=== PATIENT | female | born 1935 | race Caucasian/White ===

== ENCOUNTER 2016-03-19 06:44 | Inpatient (IN) | payer MEDICARE ==
[2016-03-19] MEDS ORDERED: MORPHINE SULFATE 10 MG/ML INJ IV ONE (07:01)
[2016-03-19] MEDS ORDERED: NORMAL SALINE 1000 ML 1,000 ML IV ONE ×2 (07:02→09:58)
[2016-03-19] MEDS ORDERED: ONDANSETRON HCL INJ/PF 4 MG/2 ML SDV IV ONE (07:02)
[2016-03-19 07:04] LABS: ABSOLUTE BASOPHILS # (AUTO) 0.1 10^3/uL (0.0-0.2); ABSOLUTE EOSINOPHILS # (AUTO) 0.1 10^3/uL (0.0-0.6); ABSOLUTE LYMPHOCYTES (AUTO) 1.3 10^3/uL (0.5-4.7); ABSOLUTE MONOCYTES (AUTO) 0.6 10^3/uL (0.1-1.4); ABSOLUTE NEUT (AUTO) 9.1 10^3/uL (1.7-8.2); BASOPHILS % (AUTO) 0.5 % (0-2); EOSINOPHILS % (AUTO) 1.1 % (0-6); HEMOGLOBIN 13.8 g/dL (12.0-15.5); HGB HCT DIFFERENCE -0.6; LYMPHOCYTES % (AUTO) 11.5 % (13-45); MEAN CORPUSCULAR HEMOGLOBIN 30.5 pg (27.0-33.4); MEAN CORPUSCULAR VOLUME 93 fl (80-97); MONOCYTES % (AUTO) 5.8 % (3-13); RED BLOOD COUNT 4.53 10^6/uL (3.72-5.28); RED CELL DISTRIBUTION WIDTH 14.6 % (11.5-14.0); SEGMENTED NEUTROPHILS % (AUTO) 81.1 % (42-78); WHITE BLOOD COUNT 11.2 10^3/uL (4.0-10.5)
[2016-03-19 07:17] LABS: ALANINE AMINOTRANSFERASE 26 U/L (9-52); ALBUMIN 4.3 g/dL (3.5-5.0); ALKALINE PHOSPHATASE 85 U/L (38-126); ANION GAP 19 (5-19); ASPARTATE AMINO TRANSFERASE 29 U/L (14-36); BILIRUBIN,TOTAL 0.9 mg/dL (0.2-1.3); BLOOD UREA NITROGEN 20 mg/dL (7-20); CALCIUM 8.2 mg/dL (8.4-10.2); CARBON DIOXIDE 16 mmol/L (22-30); CHLORIDE 103 mmol/L (98-107); CREATININE RESULT 1.96 mg/dL (0.52-1.25); GLUCOSE 87 mg/dL (75-110); LIPASE 104.4 U/L (23-300); POTASSIUM 4.2 mmol/L (3.6-5.0); SODIUM 138.2 mmol/L (137-145); TOTAL PROTEIN 6.9 g/dL (6.3-8.2)
--- NOTE | 2016-03-19 08:00 | ER Document Report ---
ED General - General Chief Complaint: Abdominal Pain Stated Complaint: LOWER ABDOMINAL PAIN Mode of Arrival: Ambulatory Information source: Patient Notes: 80-year-old female with hx of colostomy presents with complaints of abd pain with nausea and decreased colostomy output. pt denies any fevers or chills, ntoes pain started yesterday, has noted liquid only in ostomy. TRAVEL OUTSIDE OF THE [place] IN LAST 30 DAYS: No - HPI Onset: Just prior to arrival Onset/Duration: Sudden Quality of pain: Sharp Severity: Mild Pain Level: 2 Associated symptoms: Nausea Exacerbated by: Denies Relieved by: Denies Similar symptoms previously: No Recently seen / treated by doctor: No - Related Data Allergies/Adverse Reactions: Influenza Virus Vaccines [Influenza Virus Vaccine] Allergy (Severe, Verified 05/23 11:10) SICK amoxicillin [Amoxicillin] Allergy (Intermediate, Verified 05/05/15 06:41) swelling tetracycline [Tetracycline] Allergy (Intermediate, Verified 05/05/15 06:41) swelling estelle Allergy (Severe, Uncoded 05/05/15 06:41) swelling Past Medical History - Social History Smoking Status: Never Smoker Cigarette use (# per day): No Chew tobacco use (# tins/day): No Smoking Education Provided: No Family History: Reviewed & Not Pertinent, Other - Past Medical History Cardiac Medical History: Reports: Hx Hypertension Denies: Hx Coronary Artery Disease, Hx Heart Attack Pulmonary Medical History: Reports: Hx COPD Denies: Hx Asthma, Hx Bronchitis, Hx Pneumonia, Hx Tuberculosis Neurological Medical History: Denies: Hx Cerebrovascular Accident, Hx Seizures Endocrine Medical History: Reports: Hx Hypothyroidism. Denies: Hx Graves' Disease, Hx Hyperthyroidism Renal/ Medical History: Reports: Hx Kidney Stones, Hx Ovarian Cysts - 1980. Denies: Hx End Stage Renal Disease, Hx Peritoneal Dialysis, Hx Pelvic Inflammatory Disease Malignancy Medical History: Reports: Hx Cervical Cancer - 1980 stage got hysterectomy. Denies: Hx Breast Cancer, Hx Leukemia, Hx Ovarian Cancer GI Medical History: Reports: Hx Gastroesophageal Reflux Disease, Hx Ulcer. Denies: Hx Crohn's Disease, Hx Hiatal Hernia, Hx Irritable Bowel, Hx Liver Failure Musculoskeltal Medical History: Reports Hx Arthritis, Denies Hx Fibromyalgia, Denies Hx Muscular Dystrophy Psychiatric Medical History: Reports: Hx Depression Denies: Hx Bipolar Disorder, Hx Post Traumatic Stress Disorder, Hx Schizophrenia Traumatic Medical History: Reports: Hx Fractures - ankl 1970 Infectious Medical History: Denies: Hx HIV Past Surgical History: Reports: Hx Appendectomy - 16yrs old, Hx Bowel Surgery - 1974, colostomy, Hx Breast Surgery, Hx Colostomy, Hx Gastric Bypass Surgery - 1974, Hx Genitourinary Surgery - bladder tumors, Hx Hysterectomy. Denies: Hx Section, Hx Cholecystectomy, Hx Coronary Artery Bypass Graft, Hx Herniorrhaphy, Hx Mastectomy, Hx Pacemaker, Hx Tonsillectomy, Hx Tubal Ligation - Immunizations Hx Diphtheria, Pertussis, Tetanus Vaccination: Yes Hx Pneumococcal Vaccination: 02/07/09 Review of Systems - Review of Systems Notes: REVIEW OF SYSTEMS: CONSTITUTIONAL : Denies fever, chills, or sweats. Denies recent illness. EENT: Denies eye, ear, throat, or mouth pain or symptoms. Denies nasal or sinus congestion or discharge. Denies throat, tongue, or mouth swelling or difficulty swallowing. CARDIOVASCULAR: Denies chest pain. Denies palpitations or racing or irregular heart beat. Denies ankle edema. RESPIRATORY: Denies cough, cold, or chest congestion. Denies shortness of breath, difficulty breathing, or wheezing. GASTROINTESTINAL: admits to abd pain, nausea GENITOURINARY: Denies difficulty urinating, painful urination, burning, frequency, blood in urine, or discharge. MUSCULOSKELETAL: Denies back or neck pain or stiffness. Denies joint pain or swelling. SKIN: Denies rash, lesions or sores. HEMATOLOGIC : Denies easy bruising or bleeding. LYMPHATIC: Denies swollen, enlarged glands. NEUROLOGICAL: Denies confusion or altered mental status. Denies passing out or loss of consciousness. Denies dizziness or lightheadedness. Denies headache. Denies weakness or paralysis or loss of use of either side. Denies problems with gait or speech. Denies sensory loss, numbness, or tingling. Denies seizures. PSYCHIATRIC: Denies anxiety or stress. Denies depression, suicidal ideation, or homicidal ideation. ALL OTHER SYSTEMS REVIEWED AND NEGATIVE. Dictation was performed using [employer] voice recognition software Physical Exam - Vital signs Vitals: Temp Pulse Resp BP Pulse Ox 97.4 F 92 24 H 147/99 H 93 03/19/16 06:47 03/19/16 06:47 03/19/16 06:47 03/19/16 06:47 03/19/16 06:47 Course - Re-evaluation Re-evalutation: 03/19/16 08:03 Patient will be sent for a CT with oral and IV contrast, to rule out obstruction 03/19/16 09:57 CT results discussed with radiologist, we believe the patient has this obstruction, I spoke with the surgical rest will admit to his service but requests NG tube continue fluids - Vital Signs Vital signs: Temp Pulse Resp BP Pulse Ox 97.6 F 92 19 189/80 H 94 03/19/16 08:58 03/19/16 06:47 03/19/16 08:54 03/19/16 08:54 03/19/16 08:54 - Laboratory Result Diagrams: 03/19/16 06:53 03/19/16 06:53 Laboratory results interpreted by me: 03/19/16 03/19/16 06:53 06:53 WBC 11.2 H RDW 14.6 H Seg Neutrophils % 81.1 H Lymphocytes % 11.5 L Absolute Neutrophils 9.1 H Carbon Dioxide 16 L Creatinine 1.96 H Est GFR ( Amer) 30 L Est GFR (Non-Af Amer) 25 L Calcium 8.2 L - Diagnostic Test Radiology reviewed: Image reviewed, Reports reviewed Discharge - Discharge Clinical Impression: Small bowel obstruction Abdominal pain Qualifiers: Abdominal location: generalized Qualified Code(s): R10.84 - Generalized abdominal pain Condition: Stable Disposition: ADMITTED INPATIENT Admitting Provider: Surgicalist Unit Admitted: Surgical Floor
[2016-03-19] MEDS ORDERED: DILTIAZEM HCL INJ 25 MG/5 ML VIAL IV ONE ×2 (09:00→09:02)
[2016-03-19 10:49] LABS: APPEARANCE,URINE CLEAR; BILIRUBIN,URINE NEGATIVE (NEGATIVE); GLUCOSE, URINE NEGATIVE (NEGATIVE); KETONES,URINE 20 mg/dL (NEGATIVE); LEUKOCYTE ESTERASE,URINE NEGATIVE (NEGATIVE); NITRITE,URINE NEGATIVE (NEGATIVE); PROTEIN,URINE 30 mg/dL (NEGATIVE); URINE SPECIFIC GRAVITY 1.015; UROBILINOGEN,URINE NEGATIVE mg/dL (<2.0)
[2016-03-19] MEDS ORDERED: ENOXAPARIN SODIUM INJ 40 MG/0.4 ML DISP.SYRIN SUBCUT ONE (12:45)
--- NOTE | 2016-03-19 14:03 | HISTORY AND PHYSICAL E ---
History and Physical NAME: SHAHIDA LAMA : 1935 AGE: 80Y ADMITTED: 03/19/2016 ROOM: 529 HISTORY OF PRESENT ILLNESS: The patient presented to the emergency room with a history of abdominal pain from yesterday. She had a colostomy from colectomy done in 2006. She was told that she had an abscess intra-abdominally, possibly diverticular disease or some other pathology. She had exploratory laparotomy and then the colostomy. She has been doing fairly well until recently for the last 2 days having some abdominal pain from yesterday. She came in with abdominal pain and nausea. She did not vomit at home but after coming to the emergency room she threw up once here. Most of the pain is in the lower abdomen with some distention. No history of fever at home. She denies any urinary tract infection or urinary tract symptoms. No blood in the stool in the past. She never had a colonoscopy after that 2006 colostomy. PAST MEDICAL HISTORY: History of hypertension and rheumatoid arthritis. SURGICAL HISTORY: She had *------* laparotomy and colostomy on the left side. Uncertain whether she had a colectomy at the same time. REVIEW OF SYSTEMS: As above per examination. PHYSICAL EXAMINATION: GENERAL: She was mildly dehydrated, awake, alert, oriented. No icterus. HEAD AND NECK: No lymphadenopathy. No thyromegaly. No masses. RESPIRATORY: Both lungs are clear to auscultation. CARDIOVASCULAR: Both heart sounds are regular. No murmurs, no gallops. No added sounds. ABDOMEN: Lower abdomen mildly distended, soft. No rebound. Mildly tender. No masses palpable. Appreciable small hernia *------* colostomy, but there is no incarcerated hernia in the mid abdomen. EXTREMITIES: Warm and perfused. DIAGNOSTICS: CT scan reveals dilated small bowel loops with some inflammatory changes around that area. No free fluid and no free air. White count was 11. IMPRESSION: Rule out small bowel obstruction, most likely due to adhesions. PLAN: Initial conservative management because she appears to have a stable, benign, soft abdomen. We will start with conservative management upwards, first with NG tube decompression, IV fluids, DVT prophylaxis, and then close monitoring. Based on her progress, if it resolves completely with medical therapy that is fine. If not, we will plan for surgical intervention. DICTATING PHYSICIAN: TORIE FERNANDO M.D. [id number] PHY#: [id number] ID: [id number] JOB#: [id number] ACCT: [id number] cc: >
[2016-03-19] MEDS: HYDROMORPHONE HCL INJ/PF 2 MG/ML AMPULE IV PRN ×3 (14:04→22:11)
[2016-03-19] MEDS: POTASSI CL 20 MEQ/D5-1/2NS 1L 1000 ML IV PRN ×2 (14:04→23:19)
[2016-03-19] MEDS: ONDANSETRON HCL INJ/PF 4 MG/2 ML SDV IV PRN (14:04)
[2016-03-20] MEDS: HYDROMORPHONE HCL INJ/PF 2 MG/ML AMPULE IV PRN ×4 (02:05→20:42)
[2016-03-20 04:23] LABS: HEMATOCRIT 40.3 % (36.0-47.0); HEMOGLOBIN 13.3 g/dL (12.0-15.5); HGB HCT DIFFERENCE -0.4; MEAN CORPUSCULAR HEMOGLOBIN 31.1 pg (27.0-33.4); MEAN CORPUSCULAR VOLUME 94 fl (80-97); RED BLOOD COUNT 4.27 10^6/uL (3.72-5.28); RED CELL DISTRIBUTION WIDTH 14.8 % (11.5-14.0); WHITE BLOOD COUNT 8.8 10^3/uL (4.0-10.5)
[2016-03-20 04:41] LABS: ANION GAP 11 (5-19); BLOOD UREA NITROGEN 18 mg/dL (7-20); CARBON DIOXIDE 19 mmol/L (22-30); CHLORIDE 107 mmol/L (98-107); CREATININE RESULT 1.68 mg/dL (0.52-1.25); GLUCOSE 149 mg/dL (75-110); POTASSIUM 4.9 mmol/L (3.6-5.0); SODIUM 137.2 mmol/L (137-145)
[2016-03-20 04:53] LABS: CALCIUM 7.1 mg/dL (8.4-10.2)
[2016-03-20] MEDS: ONDANSETRON HCL INJ/PF 4 MG/2 ML SDV IV PRN (08:07)
[2016-03-20] MEDS: POTASSI CL 20 MEQ/D5-1/2NS 1L 1000 ML IV PRN ×2 (09:52→19:08)
[2016-03-20] MEDS ORDERED: ENOXAPARIN SODIUM INJ 40 MG/0.4 ML DISP.SYRIN SUBCUT SCH (10:00)
[2016-03-20] MEDS: ENOXAPARIN SODIUM INJ 30 MG/0.3 ML DISP.SYRIN SUBCUT SCH ×2 (12:53→13:57)
[2016-03-20] MEDS ORDERED: HYDROMORPHONE HCL INJ/PF 2 MG/ML AMPULE IV ONE (13:15)
[2016-03-20] MEDS ORDERED: SUCCINYLCHOLINE CHLORIDE INJ 200 MG/10 ML VIAL ONE (13:47)
[2016-03-20] MEDS ORDERED: ROCURONIUM BROMIDE INJ 50 MG/5 ML VIAL IV ONE (13:47)
[2016-03-20] MEDS ORDERED: ERTAPENEM SODIUM 1 GM in NORMAL SALINE 50 ML IV ONE (14:00)
[2016-03-20] MEDS ORDERED: FENTANYL CITRATE INJ/PF 250 MCG/5 ML AMPULE ONE (15:09)
[2016-03-20] MEDS ORDERED: PROPOFOL INJ 200 MG/20 ML VIAL IV ONE (15:09)
[2016-03-20] MEDS ORDERED: MIDAZOLAM 2 MG/2 ML INJ ONE (15:09)
[2016-03-20] MEDS ORDERED: ONDANSETRON HCL INJ/PF 4 MG/2 ML SDV IV PRN ×2 (16:40→19:01)
[2016-03-20] MEDS ORDERED: DIPHENHYDRAMINE HCL 50 MG/ML VIAL IV PRN (16:40)
[2016-03-20] MEDS ORDERED: FENTANYL CITRATE INJ/PF 100 MCG/2 ML AMPUL IV PRN ×3 (16:40)
[2016-03-20] MEDS ORDERED: PROMETHAZINE HCL INJ 25 MG/1 ML VIAL IV PRN (16:40)
[2016-03-20] MEDS ORDERED: HYDROMORPHONE HCL INJ/PF 2 MG/ML AMPULE ONE (17:26)
[2016-03-20] MEDS ORDERED: PHARMACY COMMUNICATION ORDER MC NR (18:45)
[2016-03-20] MEDS ORDERED: PROPOFOL 100 ML IV ONE (18:47)
[2016-03-20] MEDS ORDERED: POTASSI CL 20 MEQ/D5NS 1L 1000 ML IV PRN (18:59)
[2016-03-20] MEDS ORDERED: ERTAPENEM SODIUM INJ 1 GM VIAL IV PRN (19:00)
[2016-03-20] MEDS ORDERED: DEXTROSE 5%-WATER 250 ML with NOREPINEPHRINE BITARTRATE 4 MG IV PRN ×2 (19:00)
--- NOTE | 2016-03-20 19:34 | PDOC CONSULTATION ---
Consultation Consult Date: 03/20/16 Attending physician:: SURGICAL SURGICALIST MD Consult reason:: Medical management History of Present Illness Admission Date/PCP: 03/19/16 10:10 ELISA KAMARA, Patient complains of: Abdominal pain History of Present Illness: SHAHIDA LAMA is a 80 year old female, who presents to the emergency room for abdominal pain. She had prior intra-abdominal abscess possibly from a diverticular disease, underwent exploratory laparotomy and colostomy placement. In the emergency room she was found to have bowel obstruction presumed to be secondary to adhesions on radiographic films. Surgery was consulted and the patient was brought to the operating room and underwent exploratory laparotomy found with bowel ischemia requiring bowel resection and lysis of adhesions. Patient was maintained on the ventilator postoperatively and was transferred to the intensive care unit and consultation was made to the medical service for medical management. No other information available at this time. Information obtained from prior records, emergency room records, and surgical records. Past Medical History Past Medical History: Medication reconciliation pending verification from the patient's pharmacist Cardiac Medical History: Reports: Hypertension Denies: Coronary Artery Disease, Myocardial Infarction Pulmonary Medical History: Reports: Chronic Obstructive Pulmonary Disease (COPD) Denies: Asthma, Bronchitis, Pneumonia, Tuberculosis EENT Medical History: Reports: Cataracts Neurological Medical History: Denies: Seizures Endocrine Medical History: Reports: Hypothyroidism Denies: Hyperthyroidism Renal/ Medical History: Denies: End Stage Renal Disease Malignancy Medical History: Reports: Cervical Cancer - 1981 stage got hysterectomy Denies: Breast Cancer, Leukemia, Ovarian Cancer GI Medical History: Reports: Gastroesophageal Reflux Disease Denies: Crohn's Disease, Hiatal Hernia Musculoskeltal Medical History: Reports: Arthritis Denies: Fibromyalgia Psychiatric Medical History: Reports: Depression Denies: Bipolar Disorder, Post Traumatic Stress Disorder Hematology: Reports: Anemia - 2004 Denies: Hemophilia, Sickle Cell Disease Infectious Medical History: Denies: HIV Past Surgical History Past Surgical History: Reports: Appendectomy - 16yrs old, Colostomy, Gastric Bypass Surgery - 1974, Hysterectomy, Other - Breast augmentation, exploratory laparotomy Denies: Amputation, Section, Cholecystectomy, Coronary Artery Bypass Graft, Herniorrhaphy, Mastectomy, Pacemaker, Tonsillectomy, Tubal Ligation Social History Information Source: [facility] Records Smoking Status: Never Smoker Frequency of Alcohol Use: None Hx Recreational Drug Use: No Drugs: None Hx Prescription Drug Abuse: No - Advance Directive Resuscitation Status: Do Not Resuscitate Family History Family History: Reviewed & Not Pertinent, Other Family History: Unobtainable Parental Family History Reviewed: No Children Family History Reviewed: No Sibling(s) Family History Reviewed.: No Medication/Allergy Home Medications: Albuterol Sulfate [Ventolin HFA MDI 18 GM] 2 puff IH TIDP PRN 03/19/16 Calcium Carbonate/Vitamin D3 [Calcium 600-Vit D3 800 Tablet] 1 tab PO DAILY 11/23 Cholecalciferol (Vitamin D3) [Vitamin D3] 1,000 unit PO DAILY 03/19/16 Citalopram Hydrobromide [Celexa 20 mg Tablet] 20 mg PO DAILY 03/19/16 Cyclobenzaprine HCl [Flexeril 10 mg Tablet] 10 mg PO Q8 03/19/16 Diltiazem HCl [Diltiazem 24Hr ER] 180 mg PO DAILY 03/19/16 Diphenhydramine HCl [Benadryl] 25 mg PO QHS 03/19/16 Folic Acid [Folvite 1 mg Tablet] 1 mg PO DAILY 03/19/16 Levothyroxine Sodium [Synthroid 0.05 mg Tablet] 0.05 mg PO DAILY 03/19/16 Lorazepam [Ativan 1 mg Tablet] 1 mg PO TIDP PRN 03/19/16 Magnesium Oxide [Mag-Ox 400 mg Tablet] 400 mg PO DAILY 03/19/16 Omeprazole 20 mg PO QAM 03/19/16 Oxycodone HCl/Acetaminophen [Percocet 5-325 mg Tablet] 1 tab PO Q6 03/19/16 Tiotropium [place] [Spiriva Handihaler 18 mcg/dose (30 Dose)] 1 cap IH DAILY 11/23 Allergies/Adverse Reactions: Influenza Virus Vaccines [Influenza Virus Vaccine] Allergy (Severe, Verified 05/23 11:10) SICK amoxicillin [Amoxicillin] Allergy (Intermediate, Verified 05/05/15 06:41) swelling tetracycline [Tetracycline] Allergy (Intermediate, Verified 05/05/15 06:41) swelling estelle Allergy (Severe, Uncoded 05/05/15 06:41) swelling Review of Systems ROS unobtainable: Due to endotracheal tube Physical Exam Vital Signs: Temp Pulse Resp BP Pulse Ox 97.6 F 117 H 16 137/69 H 100 03/20/16 16:00 03/20/16 16:00 03/20/16 16:00 03/20/16 16:00 03/20/16 18:34 Intake & Output 03/19/16 03/20/16 03/21/16 06:59 06:59 06:59 Intake Total 2160 2480 Output Total 2380 Balance 2160 100 Weight 41.1 kg General appearance: PRESENT: no acute distress, thin, other - Intubated on mechanical ventilator Head exam: PRESENT: atraumatic, normocephalic Eye exam: PRESENT: conjunctiva pale, EOMI - Seems to be intact. ABSENT: periorbital swelling, scleral icterus Ear exam: PRESENT: normal external ear exam. ABSENT: drainage Mouth exam: PRESENT: moist, neck supple, tongue midline Neck exam: ABSENT: carotid bruit, JVD, lymphadenopathy, thyromegaly Respiratory exam: PRESENT: rhonchi - few, unlabored, other - Increased AP diameter of the chest. ABSENT: rales, wheezes Cardiovascular exam: PRESENT: RRR. ABSENT: diastolic murmur, gallop, rubs, systolic murmur Pulses: PRESENT: normal dorsalis pedis pul Vascular exam: PRESENT: normal capillary refill GI/Abdominal exam: PRESENT: hypoactive bowel sounds, soft. ABSENT: distended, mass, organolmegaly Rectal exam: PRESENT: deferred Extremities exam: PRESENT: full ROM. ABSENT: calf tenderness, clubbing, pedal edema Neurological exam: PRESENT: altered - Intubated, sedated Psychiatric exam: ABSENT: agitated Focused psych exam: ABSENT: restlessness Skin exam: PRESENT: dry, intact, warm. ABSENT: cyanosis Results Laboratory Results: 03/20/16 03:32 03/20/16 03:32 03/20/16 03/20/16 03/20/16 03:32 03:32 13:14 WBC 8.8 RBC 4.27 Hgb 13.3 Hct 40.3 MCV 94 MCH 31.1 MCHC 33.0 RDW 14.8 H Plt Count 243 Sodium 137.2 Potassium 4.9 Chloride 107 Carbon Dioxide 19 L Anion Gap 11 BUN 18 Creatinine 1.68 H Est GFR ( Amer) 36 L Est GFR (Non-Af Amer) 29 L Glucose 149 H Calcium 7.1 L Blood Type A POSITIVE Antibody Screen NEGATIVE Impressions: KUB X-Ray 03/19/16 00:00 IMPRESSION: Nasogastric tube tip in the stomach fundus, side port in the distal esophagus Abdomen/Pelvis CT 03/19/16 08:12 IMPRESSION: Findings worrisome for early or partial small bowel obstruction Abdomen X-Ray 03/20/16 00:00 IMPRESSION: Nonspecific intestinal bowel gas pattern without evidence for obstruction. Left renal calculi. Other findings as noted above Assessment & Plan - Diagnosis (1) Small bowel obstruction Is this a current diagnosis for this admission?: Yes (2) Chronic kidney disease (CKD) Qualifiers: Chronic kidney disease stage: stage 3 (moderate) Qualified Code(s): N18.3 - Chronic kidney disease, stage 3 (moderate) Is this a current diagnosis for this admission?: Yes (3) GERD (gastroesophageal reflux disease) Qualifiers: Esophagitis presence: esophagitis presence not specified Qualified Code(s): K21.9 - Gastro-esophageal reflux disease without esophagitis Is this a current diagnosis for this admission?: Yes (4) Rheumatoid arthritis Qualifiers: Rheumatoid arthritis location: unspecified site Rheumatoid factor presence: unspecified presence Qualified Code(s): M06.9 - Rheumatoid arthritis, unspecified Is this a current diagnosis for this admission?: Yes (5) Hypothyroidism (acquired) Is this a current diagnosis for this admission?: Yes (6) Anemia of chronic disease Is this a current diagnosis for this admission?: Yes (7) Hypertension Qualifiers: Hypertension type: essential hypertension Qualified Code(s): I10 - Essential (primary) hypertension Is this a current diagnosis for this admission?: Yes (8) COPD (chronic obstructive pulmonary disease) Qualifiers: COPD type: unspecified COPD Qualified Code(s): J44.9 - Chronic obstructive pulmonary disease, unspecified Is this a current diagnosis for this admission?: Yes - Time Time Spent: 50 to 70 Minutes - Plan Summary Plan Summary: Continue ventilatory support. We will add diprivan for light sedation, and as needed levophed if hypotension recurs. We will recheck hematocrit and electrolytes in the morning. Follow-up chest x-ray will be done. We will try to wean the patient denies morning. I will resume the patient's thyroid supplement intravenously at half the dose. Agree with IV antibiotics and IV fluids. We will place restraints to prevent pulling of the critical chills and lines. I will likewise continue the patient's bronchodilators. Thank you so much for this consultation. We will follow the patient with you.
--- NOTE | 2016-03-20 19:36 | EKG REPORT ---
SEVERITY:- BORDERLINE ECG - SINUS TACHYCARDIA BORDERLINE T ABNORMALITIES, ANT-LAT LEADS : Confirmed by: Jamie Dykes MD 20-Mar-2016 19:35:20
[2016-03-20] MEDS: LEVALBUTEROL HCL NEB 1.25 MG/3 ML AMPUL NEB SCH (20:32)
[2016-03-20 20:42] LABS: ARTERIAL BLOOD BASE EXCESS -9.8 mmol/L; ARTERIAL BLOOD O2 SATURATION 90.3 % (94-98)
--- NOTE | 2016-03-20 21:08 | OPERATIVE REPORT E ---
Operative Report NAME: SHAHIDA LAMA : 1935 AGE: 80Y DATE OF SURGERY: 03/20/2016 ROOM: 606 PREOPERATIVE DIAGNOSES: 1. Small bowel obstruction. 2. Severe malnutrition. 3. Rheumatoid arthritis. 4. Need of central venous access. POSTOPERATIVE DIAGNOSES: 1. Small bowel obstruction. 2. Severe malnutrition. 3. Rheumatoid arthritis. 4. Need of central venous access. OPERATION: In the ICU at the bedside, insertion of central venous catheter through the right internal jugular vein. SURGEON: TORIE FERNANDO M.D. PROCEDURE DESCRIPTION: After getting informed consent from the patient's family, the patient was placed in the Trendelenburg position. The neck and anterior chest wall cleaned to a sterile field. After that, the right internal jugular vein was accessed by using the Seldinger technique through the needle and a guidewire was passed into the superior vena cava. After that, the tract was dilated and then over the guidewire, a triple lumen catheter was inserted into the superior vena cava. Excellent venous flow through all 3 ports, and then all 3 ports were flushed with heparinized solution and then secured in place by using absorbable sutures and then dressing was applied. Ports were flushed with heparinized solution. Patient tolerated the procedure very well. DICTATING PHYSICIAN: TORIE FERNANDO M.D. [id number] PHY#: [id number] ID: [id number] JOB#: [id number] ACCT: [id number] cc:TORIE FERNANDO M.D. >
[2016-03-20] MEDS ORDERED: ERTAPENEM SODIUM 1 GM in NORMAL SALINE 50 ML IV SCH (22:00)
[2016-03-20] MEDS ORDERED: ERTAPENEM SODIUM INJ 1 GM VIAL ONE (23:59)
[2016-03-21] MEDS: PROPOFOL 100 ML IV PRN ×4 (00:41→21:04)
[2016-03-21] MEDS: HYDROMORPHONE HCL INJ/PF 2 MG/ML AMPULE IV PRN ×3 (02:09→19:29)
[2016-03-21] MEDS: LEVALBUTEROL HCL NEB 1.25 MG/3 ML AMPUL NEB SCH ×4 (02:27→20:15)
[2016-03-21] MEDS: POTASSI CL 20 MEQ/D5-1/2NS 1L 1000 ML IV PRN (04:14)
[2016-03-21] MEDS ORDERED: NORMAL SALINE 1000 ML 250 ML IV ONE (04:39)
[2016-03-21 05:54] LABS: ARTERIAL BLOOD BASE EXCESS -12.8 mmol/L; ARTERIAL BLOOD O2 SATURATION 97.2 % (94-98)
[2016-03-21 05:58] LABS: HEMATOCRIT 31.9 % (36.0-47.0); HGB HCT DIFFERENCE -0.4; MEAN CORPUSCULAR HEMOGLOBIN 31.5 pg (27.0-33.4); MEAN CORPUSCULAR HGB CONC 32.9 g/dL (32.0-36.0); MEAN CORPUSCULAR VOLUME 96 fl (80-97); RED BLOOD COUNT 3.33 10^6/uL (3.72-5.28); RED CELL DISTRIBUTION WIDTH 14.5 % (11.5-14.0); WHITE BLOOD COUNT 7.2 10^3/uL (4.0-10.5)
[2016-03-21 06:13] LABS: ANION GAP 9 (5-19); BLOOD UREA NITROGEN 20 mg/dL (7-20); CARBON DIOXIDE 16 mmol/L (22-30); CHLORIDE 109 mmol/L (98-107); CREATININE RESULT 1.66 mg/dL (0.52-1.25); GLUCOSE 129 mg/dL (75-110); PHOSPHORUS 3.1 mg/dL (2.5-4.5); POTASSIUM 5.3 mmol/L (3.6-5.0); SODIUM 133.9 mmol/L (137-145)
[2016-03-21 06:17] LABS: HEMOGLOBIN 10.5 g/dL (12.0-15.5)
[2016-03-21 06:36] LABS: CALCIUM 5.8 mg/dL (8.4-10.2); MAGNESIUM 0.4 mg/dL (1.6-2.3)
[2016-03-21 07:31] LABS: ALBUMIN 1.8 g/dL (3.5-5.0); ANION GAP 7 (5-19); BLOOD UREA NITROGEN 20 mg/dL (7-20); CARBON DIOXIDE 16 mmol/L (22-30); CHLORIDE 110 mmol/L (98-107); CREATININE RESULT 1.64 mg/dL (0.52-1.25); GLUCOSE 122 mg/dL (75-110); POTASSIUM 5.2 mmol/L (3.6-5.0); SODIUM 133.1 mmol/L (137-145)
[2016-03-21 07:39] LABS: MAGNESIUM 0.4 mg/dL (1.6-2.3)
[2016-03-21] MEDS ORDERED: MAGNESIUM SULFATE/D5W 2 GM/200 ML RTUPB IV ONE (07:58)
[2016-03-21] MEDS ORDERED: MAGNESIUM SULFATE/D5W 100 ML IV SCH (08:00)
[2016-03-21] MEDS ORDERED: ENOXAPARIN SODIUM INJ 40 MG/0.4 ML DISP.SYRIN SUBCUT SCH (08:00)
--- NOTE | 2016-03-21 08:08 | PDOC PROGRESS REPORT ---
Subjective Progress Note for:: 03/21/16 Subjective:: Patient on the ventilator. No reported respiratory distress. No temperature spikes. Patient with low urine output for the past 12 hours as reported. No reported congestion. No reported hypotension. Patient has metabolic acidosis on ABG. Magnesium was low. Potassium was mildly elevated. Calcium was low likewise his albumin. Physical Exam Vital Signs: Temp Pulse Resp BP Pulse Ox 98.1 F 100 13 122/50 L 96 03/21/16 06:00 03/21/16 02:25 03/21/16 06:36 03/21/16 06:36 03/21/16 03:43 Intake & Output 03/20/16 03/21/16 03/22/16 06:59 06:59 06:59 Intake Total 2160 6144 Output Total 2985 Balance 2160 3159 Weight 41.1 kg 47.2 kg General appearance: PRESENT: no acute distress, other - Intubated, lightly sedated Head exam: PRESENT: normocephalic Eye exam: PRESENT: conjunctiva pale Ear exam: PRESENT: normal external ear exam. ABSENT: drainage Mouth exam: PRESENT: moist, neck supple Neck exam: ABSENT: JVD Respiratory exam: PRESENT: clear to auscultation alexy, other - Increased AP diameter Cardiovascular exam: PRESENT: RRR. ABSENT: gallop GI/Abdominal exam: PRESENT: hypoactive bowel sounds, soft. ABSENT: distended Extremities exam: ABSENT: pedal edema Neurological exam: PRESENT: altered - Sedated Skin exam: PRESENT: dry, warm. ABSENT: cyanosis Results Laboratory Results: 03/21/16 05:40 03/21/16 06:55 03/20/16 03/20/16 03/21/16 13:14 20:33 05:40 WBC 7.2 RBC 3.33 L Hgb 10.5 L D Hct 31.9 L MCV 96 MCH 31.5 MCHC 32.9 RDW 14.5 H Plt Count 165 Carbonic Acid 1.34 HCO3/H2CO3 Ratio 13:1 ABG pH 7.22 L ABG pCO2 44.6 ABG pO2 69.5 L ABG HCO3 17.6 L ABG O2 Saturation 90.3 L ABG Base Excess -9.8 FiO2 50% Sodium Potassium Chloride Carbon Dioxide Anion Gap BUN Creatinine Est GFR ( Amer) Est GFR (Non-Af Amer) Glucose Calcium Phosphorus Magnesium Albumin Blood Type A POSITIVE Antibody Screen NEGATIVE 03/21/16 03/21/16 03/21/16 05:40 05:40 06:55 WBC RBC Hgb Hct MCV MCH MCHC RDW Plt Count Carbonic Acid 1.12 HCO3/H2CO3 Ratio 12:1 ABG pH 7.20 L* ABG pCO2 37.1 ABG pO2 112.0 H ABG HCO3 14.3 L ABG O2 Saturation 97.2 ABG Base Excess -12.8 FiO2 50% Sodium 133.9 L 133.1 L Potassium 5.3 H 5.2 H Chloride 109 H 110 H Carbon Dioxide 16 L 16 L Anion Gap 9 7 BUN 20 20 Creatinine 1.66 H 1.64 H Est GFR ( Amer) 36 L 37 L Est GFR (Non-Af Amer) 30 L 30 L Glucose 129 H 122 H Calcium 5.8 L* 6.0 L* Phosphorus 3.1 Magnesium 0.4 L* 0.4 L* Albumin 1.8 L Blood Type Antibody Screen Impressions: KUB X-Ray 03/19/16 00:00 IMPRESSION: Nasogastric tube tip in the stomach fundus, side port in the distal esophagus Abdomen/Pelvis CT 03/19/16 08:12 IMPRESSION: Findings worrisome for early or partial small bowel obstruction Abdomen X-Ray 03/20/16 00:00 IMPRESSION: Nonspecific intestinal bowel gas pattern without evidence for obstruction. Left renal calculi. Other findings as noted above Chest X-Ray 03/21/16 06:00 IMPRESSION: 1. Support tubes and lines as above. 2. No significant overall change the prior study. Assessment & Plan - Diagnosis (1) Small bowel obstruction Is this a current diagnosis for this admission?: Yes (2) Chronic kidney disease (CKD) Qualifiers: Chronic kidney disease stage: stage 3 (moderate) Qualified Code(s): N18.3 - Chronic kidney disease, stage 3 (moderate) Is this a current diagnosis for this admission?: Yes (3) GERD (gastroesophageal reflux disease) Qualifiers: Esophagitis presence: esophagitis presence not specified Qualified Code(s): K21.9 - Gastro-esophageal reflux disease without esophagitis Is this a current diagnosis for this admission?: Yes (4) Rheumatoid arthritis Qualifiers: Rheumatoid arthritis location: unspecified site Rheumatoid factor presence: unspecified presence Qualified Code(s): M06.9 - Rheumatoid arthritis, unspecified Is this a current diagnosis for this admission?: Yes (5) Hypothyroidism (acquired) Is this a current diagnosis for this admission?: Yes (6) Anemia of chronic disease Is this a current diagnosis for this admission?: Yes (7) Hypertension Qualifiers: Hypertension type: essential hypertension Qualified Code(s): I10 - Essential (primary) hypertension Is this a current diagnosis for this admission?: Yes (8) COPD (chronic obstructive pulmonary disease) Qualifiers: COPD type: unspecified COPD Qualified Code(s): J44.9 - Chronic obstructive pulmonary disease, unspecified Is this a current diagnosis for this admission?: Yes - Time Time Spent with patient: 25-34 minutes - Plan Summary Plan Summary: We will discontinue potassium containing IV fluids. Continue normal saline. Given boluses earlier and currently at 200 mL per hour. We will replace my admission and recheck the level. We will check ionized calcium. We will try to wean this morning. Continue antibiotics and bronchodilators. Continue supportive care for now. Routine electrolytes and hematocrit in the morning as well as follow-up chest x-ray. Renew her soft wrist restraints for safety.
[2016-03-21] MEDS ORDERED: MAGNESIUM SULFATE 1 GM/D5W 100 ML IV ONE ×2 (08:30→15:30)
[2016-03-21] MEDS: NORMAL SALINE 1000 ML 1,000 ML IV PRN ×4 (08:47→23:51)
[2016-03-21] MEDS: LEVOTHYROXINE SODIUM INJ/PF 0.5 MG SDV IV SCH (10:24)
[2016-03-21] MEDS: TIOTROPIUM BROMIDE DPI 5 CAP/KIT (18 MCG/CAP) IH SCH (10:25)
[2016-03-21 12:02] LABS: PROTHROMBIN TIME 16.4 SEC (11.4-15.4)
[2016-03-21] MEDS ORDERED: GLUCAGON,HUMAN RECOMB 1 MG INJ IM PRN (12:12)
[2016-03-21] MEDS ORDERED: DEXTROSE 50%-WATER SYRINGE 12.5 GM/25 ML DOSE IV PRN (12:12)
[2016-03-21] MEDS ORDERED: DEXTROSE 50%-WATER SYRINGE 25 GM/50 ML DOSE IV PRN (12:12)
[2016-03-21] MEDS ORDERED: DEXTROSE 40% GEL 15 GM TUBE X 2 PO PRN (12:12)
[2016-03-21] MEDS ORDERED: DEXTROSE 40% GEL 15 GM TUBE PO PRN (12:12)
[2016-03-21] MEDS ORDERED: DEXTROSE 10%-WATER 1,000 ML IV PRN (13:43)
--- NOTE | 2016-03-21 13:57 | PDOC PROGRESS REPORT ---
Subjective Progress Note for:: 03/21/16 Subjective:: on vent Physical Exam Vital Signs: Temp Pulse Resp BP Pulse Ox 97 F L 94 10 L 115/91 H 97 03/21/16 12:00 03/21/16 09:52 03/21/16 12:00 03/21/16 11:36 03/21/16 12:10 Intake & Output 03/20/16 03/21/16 03/22/16 06:59 06:59 06:59 Intake Total 2160 6144 Output Total 2985 140 Balance 2160 3159 -140 Weight 41.1 kg 47.2 kg GI/Abdominal exam: PRESENT: ascites, diminished bowel sounds - Abdomen soft, incision clean, distended, firm, guarding, hernia, hyperactive bowel sounds, hypoactive bowel sounds, mass, Lorenzo's sign, normal bowel sounds, organolmegaly , rebound, rigid, soft, tenderness, other Results Laboratory Results: 03/21/16 05:40 03/21/16 06:55 03/20/16 03/20/16 03/21/16 13:14 20:33 05:40 WBC 7.2 RBC 3.33 L Hgb 10.5 L D Hct 31.9 L MCV 96 MCH 31.5 MCHC 32.9 RDW 14.5 H Plt Count 165 Carbonic Acid 1.34 HCO3/H2CO3 Ratio 13:1 ABG pH 7.22 L ABG pCO2 44.6 ABG pO2 69.5 L ABG HCO3 17.6 L ABG O2 Saturation 90.3 L ABG Base Excess -9.8 FiO2 50% Sodium Potassium Chloride Carbon Dioxide Anion Gap BUN Creatinine Est GFR ( Amer) Est GFR (Non-Af Amer) Glucose Calcium Ionized Calcium Johnie Phosphorus Magnesium Albumin Prealbumin Triglycerides Blood Type A POSITIVE Antibody Screen NEGATIVE 03/21/16 03/21/16 03/21/16 05:40 05:40 06:55 WBC RBC Hgb Hct MCV MCH MCHC RDW Plt Count Carbonic Acid 1.12 HCO3/H2CO3 Ratio 12:1 ABG pH 7.20 L* ABG pCO2 37.1 ABG pO2 112.0 H ABG HCO3 14.3 L ABG O2 Saturation 97.2 ABG Base Excess -12.8 FiO2 50% Sodium 133.9 L 133.1 L Potassium 5.3 H 5.2 H Chloride 109 H 110 H Carbon Dioxide 16 L 16 L Anion Gap 9 7 BUN 20 20 Creatinine 1.66 H 1.64 H Est GFR ( Amer) 36 L 37 L Est GFR (Non-Af Amer) 30 L 30 L Glucose 129 H 122 H Calcium 5.8 L* 6.0 L* Ionized Calcium Johnie Phosphorus 3.1 Magnesium 0.4 L* 0.4 L* Albumin 1.8 L Prealbumin Triglycerides Blood Type Antibody Screen 03/21/16 03/21/16 03/21/16 11:46 11:46 11:46 WBC RBC Hgb Hct MCV MCH MCHC RDW Plt Count Carbonic Acid HCO3/H2CO3 Ratio ABG pH ABG pCO2 ABG pO2 ABG HCO3 ABG O2 Saturation ABG Base Excess FiO2 Sodium Potassium Chloride Carbon Dioxide Anion Gap BUN Creatinine Est GFR ( Amer) Est GFR (Non-Af Amer) Glucose Calcium Ionized Calcium Johnie 1.00 L Phosphorus Magnesium 1.5 L D Albumin Prealbumin Triglycerides 80 Blood Type Antibody Screen 03/21/16 11:46 WBC RBC Hgb Hct MCV MCH MCHC RDW Plt Count Carbonic Acid HCO3/H2CO3 Ratio ABG pH ABG pCO2 ABG pO2 ABG HCO3 ABG O2 Saturation ABG Base Excess FiO2 Sodium Potassium Chloride Carbon Dioxide Anion Gap BUN Creatinine Est GFR ( Amer) Est GFR (Non-Af Amer) Glucose Calcium Ionized Calcium Johnie Phosphorus Magnesium Albumin Prealbumin 9.4 L Triglycerides Blood Type Antibody Screen Impressions: KUB X-Ray 03/19/16 00:00 IMPRESSION: Nasogastric tube tip in the stomach fundus, side port in the distal esophagus Abdomen/Pelvis CT 03/19/16 08:12 IMPRESSION: Findings worrisome for early or partial small bowel obstruction Abdomen X-Ray 03/20/16 00:00 IMPRESSION: Nonspecific intestinal bowel gas pattern without evidence for obstruction. Left renal calculi. Other findings as noted above Chest X-Ray 03/21/16 06:00 IMPRESSION: 1. Support tubes and lines as above. 2. No significant overall change the prior study. Assessment & Plan - Plan Summary Plan Summary: s/p Small bowel resection, and lysis of adhesions for small bowel obstruction, Stable On vent Weaning plan TPN
[2016-03-21 15:29] LABS: ABSOLUTE LYMPHOCYTES (AUTO) 0.8 10^3/uL (0.5-4.7); ABSOLUTE MONOCYTES (AUTO) 0.8 10^3/uL (0.1-1.4); ABSOLUTE NEUT (AUTO) 6.4 10^3/uL (1.7-8.2); BASOPHILS % (AUTO) 0.2 % (0-2); EOSINOPHILS % (AUTO) 0.1 % (0-6); HEMATOCRIT 28.2 % (36.0-47.0); HEMOGLOBIN 9.3 g/dL (12.0-15.5); HGB HCT DIFFERENCE -0.3; LYMPHOCYTES % (AUTO) 9.4 % (13-45); MEAN CORPUSCULAR HEMOGLOBIN 31.6 pg (27.0-33.4); MEAN CORPUSCULAR HGB CONC 33.1 g/dL (32.0-36.0); MEAN CORPUSCULAR VOLUME 95 fl (80-97); MONOCYTES % (AUTO) 9.8 % (3-13); RED BLOOD COUNT 2.95 10^6/uL (3.72-5.28); RED CELL DISTRIBUTION WIDTH 14.6 % (11.5-14.0); SEGMENTED NEUTROPHILS % (AUTO) 80.5 % (42-78); WHITE BLOOD COUNT 7.9 10^3/uL (4.0-10.5)
[2016-03-21 15:48] LABS: ANION GAP 7 (5-19); BLOOD UREA NITROGEN 20 mg/dL (7-20); CARBON DIOXIDE 16 mmol/L (22-30); CHLORIDE 112 mmol/L (98-107); CREATININE RESULT 1.68 mg/dL (0.52-1.25); GLUCOSE 82 mg/dL (75-110); POTASSIUM 4.6 mmol/L (3.6-5.0); SODIUM 134.5 mmol/L (137-145)
[2016-03-21 15:59] LABS: CALCIUM 6.2 mg/dL (8.4-10.2)
[2016-03-21] MEDS: AMINO ACIDS 5%/D25W 1,000 ML IV PRN (16:40)
[2016-03-21] MEDS ORDERED: MAGNESIUM SULFATE/D5W 1 GM/100 ML RTUPB IV ONE (17:00)
[2016-03-21] MEDS: ERTAPENEM SODIUM 0.5 GM in NORMAL SALINE 50 ML IV SCH (22:14)
[2016-03-22] MEDS: HYDROMORPHONE HCL INJ/PF 2 MG/ML AMPULE IV PRN (01:57)
[2016-03-22] MEDS: LEVALBUTEROL HCL NEB 1.25 MG/3 ML AMPUL NEB SCH ×4 (02:12→20:07)
[2016-03-22] MEDS: PROPOFOL 100 ML IV PRN (04:00)
[2016-03-22] MEDS: NORMAL SALINE 1000 ML 1,000 ML IV PRN ×2 (04:51→09:57)
[2016-03-22 06:25] LABS: ARTERIAL BLOOD BASE EXCESS -12.2 mmol/L; ARTERIAL BLOOD O2 SATURATION 92.7 % (94-98)
[2016-03-22 06:33] LABS: PROTHROMBIN TIME 15.5 SEC (11.4-15.4)
[2016-03-22 06:45] LABS: ALANINE AMINOTRANSFERASE 29 U/L (9-52); ALBUMIN 1.5 g/dL (3.5-5.0); ALKALINE PHOSPHATASE 49 U/L (38-126); ANION GAP 5 (5-19); ASPARTATE AMINO TRANSFERASE 14 U/L (14-36); BLOOD UREA NITROGEN 20 mg/dL (7-20); CARBON DIOXIDE 15 mmol/L (22-30); CHLORIDE 115 mmol/L (98-107); CREATININE RESULT 1.59 mg/dL (0.52-1.25); GLUCOSE 114 mg/dL (75-110); MAGNESIUM 1.9 mg/dL (1.6-2.3); PHOSPHORUS 3.2 mg/dL (2.5-4.5); POTASSIUM 4.1 mmol/L (3.6-5.0); SODIUM 135.2 mmol/L (137-145); TOTAL PROTEIN 3.6 g/dL (6.3-8.2)
[2016-03-22 06:52] LABS: PREALBUMIN 6.3 mg/dL (17.6-36.0)
--- NOTE | 2016-03-22 06:54 | PDOC PROGRESS REPORT ---
Subjective Progress Note for:: 03/22/16 Physical Exam Vital Signs: Temp Pulse Resp BP Pulse Ox 99.8 F 102 H 11 L 119/34 L 97 03/22/16 06:00 03/22/16 02:10 03/22/16 06:00 03/22/16 05:37 03/22/16 06:00 Intake & Output 03/20/16 03/21/16 03/22/16 06:59 06:59 06:59 Intake Total 2160 0056 8156 Output Total 9126 1482 Balance 2167 4967 2763 Weight 41.1 kg 47.2 kg 54.7 kg GI/Abdominal exam: PRESENT: ascites, diminished bowel sounds, distended, firm, guarding, hernia, hyperactive bowel sounds, hypoactive bowel sounds, mass, Lorenzo's sign, normal bowel sounds, organolmegaly, rebound, rigid, soft, tenderness, other - soft abdomen Results Laboratory Results: 03/22/16 06:00 03/21/16 03/21/16 03/21/16 06:55 11:46 11:46 WBC RBC Hgb Hct MCV MCH MCHC RDW Plt Count Seg Neutrophils % Lymphocytes % Monocytes % Eosinophils % Basophils % Absolute Neutrophils Absolute Lymphocytes Absolute Monocytes Absolute Eosinophils Absolute Basophils Carbonic Acid HCO3/H2CO3 Ratio ABG pH ABG pCO2 ABG pO2 ABG HCO3 ABG O2 Saturation ABG Base Excess FiO2 Sodium 133.1 L Potassium 5.2 H Chloride 110 H Carbon Dioxide 16 L Anion Gap 7 BUN 20 Creatinine 1.64 H Est GFR ( Amer) 37 L Est GFR (Non-Af Amer) 30 L Glucose 122 H Calcium 6.0 L* Ionized Calcium Johnie 1.00 L Phosphorus Magnesium 0.4 L* 1.5 L D Albumin 1.8 L Prealbumin Triglycerides 03/21/16 03/21/16 03/21/16 11:46 11:46 15:20 WBC 7.9 RBC 2.95 L Hgb 9.3 L Hct 28.2 L MCV 95 MCH 31.6 MCHC 33.1 RDW 14.6 H Plt Count 144 L Seg Neutrophils % 80.5 H Lymphocytes % 9.4 L Monocytes % 9.8 Eosinophils % 0.1 Basophils % 0.2 Absolute Neutrophils 6.4 Absolute Lymphocytes 0.8 Absolute Monocytes 0.8 Absolute Eosinophils 0.0 Absolute Basophils 0.0 Carbonic Acid HCO3/H2CO3 Ratio ABG pH ABG pCO2 ABG pO2 ABG HCO3 ABG O2 Saturation ABG Base Excess FiO2 Sodium Potassium Chloride Carbon Dioxide Anion Gap BUN Creatinine Est GFR ( Amer) Est GFR (Non-Af Amer) Glucose Calcium Ionized Calcium Johnie Phosphorus Magnesium Albumin Prealbumin 9.4 L Triglycerides 80 03/21/16 03/22/16 03/22/16 15:20 06:00 06:00 WBC RBC Hgb Hct MCV MCH MCHC RDW Plt Count Seg Neutrophils % Lymphocytes % Monocytes % Eosinophils % Basophils % Absolute Neutrophils Absolute Lymphocytes Absolute Monocytes Absolute Eosinophils Absolute Basophils Carbonic Acid 1.06 HCO3/H2CO3 Ratio 13:1 ABG pH 7.23 L ABG pCO2 35.1 ABG pO2 75.6 L ABG HCO3 14.3 L ABG O2 Saturation 92.7 L ABG Base Excess -12.2 FiO2 30% Sodium 134.5 L Cancelled Potassium 4.6 Cancelled Chloride 112 H Cancelled Carbon Dioxide 16 L Cancelled Anion Gap 7 Cancelled BUN 20 Cancelled Creatinine 1.68 H Cancelled Est GFR ( Amer) 36 L Cancelled Est GFR (Non-Af Amer) 29 L Cancelled Glucose 82 Cancelled Calcium 6.2 L* Cancelled Ionized Calcium Johnie Phosphorus Cancelled Magnesium Cancelled Albumin Prealbumin Cancelled Triglycerides Impressions: KUB X-Ray 03/19/16 00:00 IMPRESSION: Nasogastric tube tip in the stomach fundus, side port in the distal esophagus Abdomen/Pelvis CT 03/19/16 08:12 IMPRESSION: Findings worrisome for early or partial small bowel obstruction Abdomen X-Ray 03/20/16 00:00 IMPRESSION: Nonspecific intestinal bowel gas pattern without evidence for obstruction. Left renal calculi. Other findings as noted above Assessment & Plan - Plan Summary Plan Summary: Needs TPN Pulmonary follow- up Physical therapy Plan Rehab after DC
[2016-03-22 07:10] LABS: HEMATOCRIT 23.1 % (36.0-47.0); HGB HCT DIFFERENCE -0.3; MEAN CORPUSCULAR HEMOGLOBIN 31.5 pg (27.0-33.4); MEAN CORPUSCULAR HGB CONC 32.7 g/dL (32.0-36.0); MEAN CORPUSCULAR VOLUME 96 fl (80-97); RED CELL DISTRIBUTION WIDTH 14.9 % (11.5-14.0); WHITE BLOOD COUNT 5.5 10^3/uL (4.0-10.5)
[2016-03-22 07:24] LABS: BILIRUBIN,TOTAL < 0.1 mg/dL (0.2-1.3)
[2016-03-22 07:25] LABS: CALCIUM 6.2 mg/dL (8.4-10.2)
[2016-03-22 07:50] LABS: HEMOGLOBIN 7.6 g/dL (12.0-15.5)
[2016-03-22] MEDS: ENOXAPARIN SODIUM INJ 30 MG/0.3 ML DISP.SYRIN SUBCUT SCH (08:07)
--- NOTE | 2016-03-22 09:03 | PDOC PROGRESS REPORT ---
Subjective Progress Note for:: 03/22/16 Subjective:: Patient reportedly with low hemoglobin. Has significant positive fluid balance. No active bleeding reported. Remains on the ventilator. No reported temperature spikes or desaturation. Sister at bedside who reportedly the patient is a DO NOT RESUSCITATE and has a living will. She has no power of health care attorney but she is the next of kin. The patient made the decision to rescind the DO NOT RESUSCITATE for the procedure only as reported. I have tried to verify there is with surgical service who basically reports that the DO NOT RESUSCITATE is customarily rescinded for about 12 hours and then resumed back. There is no report that the patient wants to completely reverse her living with her DO NOT RESUSCITATE status. Physical Exam Vital Signs: Temp Pulse Resp BP Pulse Ox 99.8 F 102 H 16 119/34 L 98 03/22/16 06:00 03/22/16 08:28 03/22/16 08:28 03/22/16 05:37 03/22/16 08:28 Intake & Output 03/21/16 03/22/16 03/23/16 06:59 06:59 06:59 Intake Total 6144 8197 Output Total 3285 2490 Balance 2859 5707 Weight 47.2 kg 54.7 kg General appearance: PRESENT: no acute distress, other - Intubated and sedated, on TPN Head exam: PRESENT: normocephalic Eye exam: PRESENT: conjunctiva pale Mouth exam: PRESENT: moist, neck supple Neck exam: ABSENT: JVD Respiratory exam: PRESENT: clear to auscultation alexy Cardiovascular exam: PRESENT: RRR. ABSENT: gallop GI/Abdominal exam: PRESENT: hypoactive bowel sounds, soft. ABSENT: distended Extremities exam: ABSENT: pedal edema Neurological exam: PRESENT: altered - Sedated and intubated Skin exam: PRESENT: dry, warm. ABSENT: cyanosis Results Laboratory Results: 03/22/16 06:00 03/22/16 06:00 03/21/16 03/21/16 03/21/16 11:46 11:46 11:46 WBC RBC Hgb Hct MCV MCH MCHC RDW Plt Count Seg Neutrophils % Lymphocytes % Monocytes % Eosinophils % Basophils % Absolute Neutrophils Absolute Lymphocytes Absolute Monocytes Absolute Eosinophils Absolute Basophils Carbonic Acid HCO3/H2CO3 Ratio ABG pH ABG pCO2 ABG pO2 ABG HCO3 ABG O2 Saturation ABG Base Excess FiO2 Sodium Potassium Chloride Carbon Dioxide Anion Gap BUN Creatinine Est GFR ( Amer) Est GFR (Non-Af Amer) Glucose Calcium Ionized Calcium Johnie 1.00 L Phosphorus Magnesium 1.5 L D Total Bilirubin AST ALT Alkaline Phosphatase Total Protein Albumin Prealbumin Triglycerides 80 03/21/16 03/21/16 03/21/16 11:46 15:20 15:20 WBC 7.9 RBC 2.95 L Hgb 9.3 L Hct 28.2 L MCV 95 MCH 31.6 MCHC 33.1 RDW 14.6 H Plt Count 144 L Seg Neutrophils % 80.5 H Lymphocytes % 9.4 L Monocytes % 9.8 Eosinophils % 0.1 Basophils % 0.2 Absolute Neutrophils 6.4 Absolute Lymphocytes 0.8 Absolute Monocytes 0.8 Absolute Eosinophils 0.0 Absolute Basophils 0.0 Carbonic Acid HCO3/H2CO3 Ratio ABG pH ABG pCO2 ABG pO2 ABG HCO3 ABG O2 Saturation ABG Base Excess FiO2 Sodium 134.5 L Potassium 4.6 Chloride 112 H Carbon Dioxide 16 L Anion Gap 7 BUN 20 Creatinine 1.68 H Est GFR ( Amer) 36 L Est GFR (Non-Af Amer) 29 L Glucose 82 Calcium 6.2 L* Ionized Calcium Johnie Phosphorus Magnesium Total Bilirubin AST ALT Alkaline Phosphatase Total Protein Albumin Prealbumin 9.4 L Triglycerides 03/22/16 03/22/16 03/22/16 06:00 06:00 06:00 WBC 5.5 RBC 2.40 L Hgb 7.6 L Hct 23.1 L MCV 96 MCH 31.5 MCHC 32.7 RDW 14.9 H Plt Count 118 L Seg Neutrophils % Lymphocytes % Monocytes % Eosinophils % Basophils % Absolute Neutrophils Absolute Lymphocytes Absolute Monocytes Absolute Eosinophils Absolute Basophils Carbonic Acid HCO3/H2CO3 Ratio ABG pH ABG pCO2 ABG pO2 ABG HCO3 ABG O2 Saturation ABG Base Excess FiO2 Sodium Cancelled 135.2 L Potassium Cancelled 4.1 Chloride Cancelled 115 H Carbon Dioxide Cancelled 15 L Anion Gap Cancelled 5 BUN Cancelled 20 Creatinine Cancelled 1.59 H Est GFR ( Amer) Cancelled 38 L Est GFR (Non-Af Amer) Cancelled 31 L Glucose Cancelled 114 H Calcium Cancelled 6.2 L* Ionized Calcium Johnie Phosphorus Cancelled 3.2 Magnesium Cancelled 1.9 Total Bilirubin < 0.1 L AST 14 ALT 29 Alkaline Phosphatase 49 Total Protein 3.6 L Albumin 1.5 L Prealbumin Cancelled 6.3 L Triglycerides 03/22/16 06:00 WBC RBC Hgb Hct MCV MCH MCHC RDW Plt Count Seg Neutrophils % Lymphocytes % Monocytes % Eosinophils % Basophils % Absolute Neutrophils Absolute Lymphocytes Absolute Monocytes Absolute Eosinophils Absolute Basophils Carbonic Acid 1.06 HCO3/H2CO3 Ratio 13:1 ABG pH 7.23 L ABG pCO2 35.1 ABG pO2 75.6 L ABG HCO3 14.3 L ABG O2 Saturation 92.7 L ABG Base Excess -12.2 FiO2 30% Sodium Potassium Chloride Carbon Dioxide Anion Gap BUN Creatinine Est GFR ( Amer) Est GFR (Non-Af Amer) Glucose Calcium Ionized Calcium Johnie Phosphorus Magnesium Total Bilirubin AST ALT Alkaline Phosphatase Total Protein Albumin Prealbumin Triglycerides Impressions: KUB X-Ray 03/19/16 00:00 IMPRESSION: Nasogastric tube tip in the stomach fundus, side port in the distal esophagus Abdomen/Pelvis CT 03/19/16 08:12 IMPRESSION: Findings worrisome for early or partial small bowel obstruction Abdomen X-Ray 03/20/16 00:00 IMPRESSION: Nonspecific intestinal bowel gas pattern without evidence for obstruction. Left renal calculi. Other findings as noted above Chest X-Ray 03/22/16 06:00 IMPRESSION: Pertinent findings on the imaging study reported as a CRITICAL RESULT to Baldo Meek RN at07:56 on 03/22/2016. He reports the patient had recent laparotomy. Category of Critical Result: Pneumoperitoneum. Assessment & Plan - Diagnosis (1) Small bowel obstruction Is this a current diagnosis for this admission?: Yes (2) Chronic kidney disease (CKD) Qualifiers: Chronic kidney disease stage: stage 3 (moderate) Qualified Code(s): N18.3 - Chronic kidney disease, stage 3 (moderate) Is this a current diagnosis for this admission?: Yes (3) GERD (gastroesophageal reflux disease) Qualifiers: Esophagitis presence: esophagitis presence not specified Qualified Code(s): K21.9 - Gastro-esophageal reflux disease without esophagitis Is this a current diagnosis for this admission?: Yes (4) Rheumatoid arthritis Qualifiers: Rheumatoid arthritis location: unspecified site Rheumatoid factor presence: unspecified presence Qualified Code(s): M06.9 - Rheumatoid arthritis, unspecified Is this a current diagnosis for this admission?: Yes (5) Hypothyroidism (acquired) Is this a current diagnosis for this admission?: Yes (6) Anemia of chronic disease Is this a current diagnosis for this admission?: Yes (7) Hypertension Qualifiers: Hypertension type: essential hypertension Qualified Code(s): I10 - Essential (primary) hypertension Is this a current diagnosis for this admission?: Yes (8) COPD (chronic obstructive pulmonary disease) Qualifiers: COPD type: unspecified COPD Qualified Code(s): J44.9 - Chronic obstructive pulmonary disease, unspecified Is this a current diagnosis for this admission?: Yes - Time Time Spent with patient: 25-34 minutes - Plan Summary Plan Summary: We are going to transfuse 2 units of packed RBC. We will give supplemental calcium. I will begin intravenous Lasix. I will put her normal saline to KVO. We will try to wean the patient off the ventilator today and hopefully extubate. In the meantime I will renew her DO NOT RESUSCITATE. There was no report that the patient wished to reverse her living will.
--- NOTE | 2016-03-22 09:50 | PDOC PROGRESS REPORT ---
Subjective Progress Note for:: 03/22/16 Subjective:: Patient is intubated, sedated. SHe is essentially nonresponsive. Physical Exam Vital Signs: Temp Pulse Resp BP Pulse Ox 99.5 F 102 H 16 117/38 L 98 03/22/16 08:00 03/22/16 08:28 03/22/16 08:28 03/22/16 08:00 03/22/16 08:28 Intake & Output 03/21/16 03/22/16 03/23/16 06:59 06:59 06:59 Intake Total 6144 8197 Output Total 3285 2490 25 Balance 2859 5707 -25 Weight 47.2 kg 54.7 kg General appearance: PRESENT: other - Sedation onboard Respiratory exam: PRESENT: other - Clear to auscultation; minimal ventilatory support; FiO2 30% Cardiovascular exam: PRESENT: other - Heart rate 102; diastolic blood pressure 1 :15. GI/Abdominal exam: PRESENT: other - Abdomen exam: Colostomy pain no gas or stool ; serous sanguinous drainage from right lower quadrant drain; midline dressing dry and intact Results Laboratory Results: 03/22/16 06:00 03/22/16 06:00 03/21/16 03/21/16 03/21/16 11:46 11:46 11:46 WBC RBC Hgb Hct MCV MCH MCHC RDW Plt Count Seg Neutrophils % Lymphocytes % Monocytes % Eosinophils % Basophils % Absolute Neutrophils Absolute Lymphocytes Absolute Monocytes Absolute Eosinophils Absolute Basophils Carbonic Acid HCO3/H2CO3 Ratio ABG pH ABG pCO2 ABG pO2 ABG HCO3 ABG O2 Saturation ABG Base Excess FiO2 Sodium Potassium Chloride Carbon Dioxide Anion Gap BUN Creatinine Est GFR ( Amer) Est GFR (Non-Af Amer) Glucose Calcium Ionized Calcium Johnie 1.00 L Phosphorus Magnesium 1.5 L D Total Bilirubin AST ALT Alkaline Phosphatase Total Protein Albumin Prealbumin Triglycerides 80 03/21/16 03/21/16 03/21/16 11:46 15:20 15:20 WBC 7.9 RBC 2.95 L Hgb 9.3 L Hct 28.2 L MCV 95 MCH 31.6 MCHC 33.1 RDW 14.6 H Plt Count 144 L Seg Neutrophils % 80.5 H Lymphocytes % 9.4 L Monocytes % 9.8 Eosinophils % 0.1 Basophils % 0.2 Absolute Neutrophils 6.4 Absolute Lymphocytes 0.8 Absolute Monocytes 0.8 Absolute Eosinophils 0.0 Absolute Basophils 0.0 Carbonic Acid HCO3/H2CO3 Ratio ABG pH ABG pCO2 ABG pO2 ABG HCO3 ABG O2 Saturation ABG Base Excess FiO2 Sodium 134.5 L Potassium 4.6 Chloride 112 H Carbon Dioxide 16 L Anion Gap 7 BUN 20 Creatinine 1.68 H Est GFR ( Amer) 36 L Est GFR (Non-Af Amer) 29 L Glucose 82 Calcium 6.2 L* Ionized Calcium Johnie Phosphorus Magnesium Total Bilirubin AST ALT Alkaline Phosphatase Total Protein Albumin Prealbumin 9.4 L Triglycerides 03/22/16 03/22/16 03/22/16 06:00 06:00 06:00 WBC 5.5 RBC 2.40 L Hgb 7.6 L Hct 23.1 L MCV 96 MCH 31.5 MCHC 32.7 RDW 14.9 H Plt Count 118 L Seg Neutrophils % Lymphocytes % Monocytes % Eosinophils % Basophils % Absolute Neutrophils Absolute Lymphocytes Absolute Monocytes Absolute Eosinophils Absolute Basophils Carbonic Acid HCO3/H2CO3 Ratio ABG pH ABG pCO2 ABG pO2 ABG HCO3 ABG O2 Saturation ABG Base Excess FiO2 Sodium Cancelled 135.2 L Potassium Cancelled 4.1 Chloride Cancelled 115 H Carbon Dioxide Cancelled 15 L Anion Gap Cancelled 5 BUN Cancelled 20 Creatinine Cancelled 1.59 H Est GFR ( Amer) Cancelled 38 L Est GFR (Non-Af Amer) Cancelled 31 L Glucose Cancelled 114 H Calcium Cancelled 6.2 L* Ionized Calcium Johnie Phosphorus Cancelled 3.2 Magnesium Cancelled 1.9 Total Bilirubin < 0.1 L AST 14 ALT 29 Alkaline Phosphatase 49 Total Protein 3.6 L Albumin 1.5 L Prealbumin Cancelled 6.3 L Triglycerides 03/22/16 06:00 WBC RBC Hgb Hct MCV MCH MCHC RDW Plt Count Seg Neutrophils % Lymphocytes % Monocytes % Eosinophils % Basophils % Absolute Neutrophils Absolute Lymphocytes Absolute Monocytes Absolute Eosinophils Absolute Basophils Carbonic Acid 1.06 HCO3/H2CO3 Ratio 13:1 ABG pH 7.23 L ABG pCO2 35.1 ABG pO2 75.6 L ABG HCO3 14.3 L ABG O2 Saturation 92.7 L ABG Base Excess -12.2 FiO2 30% Sodium Potassium Chloride Carbon Dioxide Anion Gap BUN Creatinine Est GFR ( Amer) Est GFR (Non-Af Amer) Glucose Calcium Ionized Calcium Johnie Phosphorus Magnesium Total Bilirubin AST ALT Alkaline Phosphatase Total Protein Albumin Prealbumin Triglycerides Impressions: KUB X-Ray 03/19/16 00:00 IMPRESSION: Nasogastric tube tip in the stomach fundus, side port in the distal esophagus Abdomen/Pelvis CT 03/19/16 08:12 IMPRESSION: Findings worrisome for early or partial small bowel obstruction Abdomen X-Ray 03/20/16 00:00 IMPRESSION: Nonspecific intestinal bowel gas pattern without evidence for obstruction. Left renal calculi. Other findings as noted above Chest X-Ray 03/22/16 06:00 IMPRESSION: Pertinent findings on the imaging study reported as a CRITICAL RESULT to Baldo Meek RN at07:56 on 03/22/2016. He reports the patient had recent laparotomy. Category of Critical Result: Pneumoperitoneum. Status: Imported from PACS Assessment & Plan - Diagnosis (1) Small bowel obstruction Is this a current diagnosis for this admission?: YesPlan: 1. Patient is 2 days status post exploratory laparotomy stents of small bowel resection by Dr. Holm. She remains hemodynamically stable, on minimal ventilatory support with sedation. 2. Patient apparently has a DO NOT RESUSCITATE status which is now been reinstated. It would be appropriate to discuss with the patient's sister, apparent healthcare power of sports attorney, level of aggressiveness of care. Looking at the patient's laboratory profile this morning, she remains profoundly acidotic. Given the patient's multiple comorbidities, recent stress of surgery, malnutrition, patient's prognosis is extremely poor. 3. Will arrange transfer from surgical service to hospitalist service. I have discussed this with Dr. Acuna. - Time Time Spent with patient: 15-24 minutes
[2016-03-22] MEDS ORDERED: CALCIUM GLUCONATE 1000 MG/10 ML INJ IV ONE (10:30)
--- NOTE | 2016-03-22 10:47 | OPERATIVE REPORT E ---
Operative Report NAME: SHAHIDA LAMA : 1935 AGE: 80Y DATE OF SURGERY: 03/20/2016 ROOM: 609 PREOPERATIVE DIAGNOSIS: 1. Intestinal obstruction. 2. Malnutrition. 3. 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 POSTOPERATIVE DIAGNOSES: 1. Completely bypassed to most of the ileum and upper jejunum. 2. Extensive multiple adhesions. 3. 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 OPERATION: 1. Laparotomy. 2. Drainage of ascitic fluid. 3. Extensive lysis of adhesions. 4. Resection of the . 5. Repair of the small bowel serosal defect . SURGEON: TORIE FERNANDO M.D. ANESTHESIA: General. ESTIMATED BLOOD LOSS: 200 mL. TISSUE REMOVED OR ALTERED: Specimens: Most of the small bowel is ischemic. HISTORY/INDICATION: The patient was diagnosed with bladder cancer, and apparently in 2006 he had an exploratory laparotomy per indication. History the patient is unable to give but seems to be having intra-abdominal problems including possible small bowel perforation and even abscess, underwent laparotomy, and other details he does not remember. He had a colostomy and developed abdominal pain for the last week or so with a no colostomy output, increasing abdominal distention, pain, nausea, and then she came to the emergency room and was admitted last night. Care was with conservative therapy with initiation conservation with NG tube decompression, IV fluids, bowel rest. On re-evaluation today, no improvement at all, increasing pain and tenderness, and the CT scan was very concerning for increased bowel dilatation with worsening abdominal pain, tenderness, and need for exploratory laparotomy. The patient was explained the procedure indications, benefits, and complications including but not limited to infection, bleeding, pain, bowel leak, need for any further re-operations, mortality, the possibility of are all at length explained to the patient and patient's family also, and the patient was taken to the operating room after informed consent was obtained. DESCRIPTION PROCEDURE: Under general anesthesia in the supine position, he was given Invanz IV antibiotic. Abdomen was cleansed and draped as a sterile field. SCDs for DVT prophylaxis with Lovenox. With a midline incision, the abdomen was opened. There were an extensive amount of adhesions between the small bowel loops and abdominal wall and omentum. The adhesions were taken down carefully. It almost took about an hour and a half to lyse adhesions carefully to identify all of the bowel loops clearly. There were loops of small bowel extremely dense attached to the bladder which was completely lysed carefully layer by layer with sharp dissection. No enterostomy made, no bile leaks, but there was a large amount of ascitic fluid which was drained out. Further examination revealed all the small bowel loops stuck in the bladder. Bladder and pelvis were thick walled with radiation changes, radiation enteritis, and most of the bowel loops were ischemic, almost like the appearance of gangrene. Interestingly, most of the small bowel loops basically were proximally. There was a blind area which was resected, and then distal ileum was anastomosed to proximal jejunum, and then subsequently basically her continuation of J-tract from the stomach, proximal jejunal and directly to the terminal ileum and the colon. In the rest of the small bowel, all of the ileum and most of the proximal jejunum was defunctionalized. All of the defunctionalized bowel was almost like matted up and stuck in the pelvis and almost ischemic and gangrenous consistent with radiation enteritis. So all of this bowel loop has enteritis with ischemia and all needed to be resected. Because of the gangrenous process, all of the defunctional bowel was resected. The rest of the bowel function does not appear to be healthy enough to preserve and no other dissection needed. A couple of areas of small bowel serosal defects were repaired carefully by using the 3-0 silk and 3-0 Vicryl sutures . After that, the abdomen is copiously irrigated and suctioned out and a NATHAN drain was placed in the lower pelvis lateral to the left perirectal area with a small 5 mm incision. After that, several layers of Surgicel were inserted into the abdominal cavity to prevent any further adhesions. After that, the midline incision was closed by using #1 looped PDS for the fascia and dada for the skin, and then please mention that during this entire time the wound was protected with a wound protector which is disposable wound protector instrument which prevented bowel ischemic contact with the wound. Again, no contamination with ascitic fluid. The patient was tolerated the procedure. Because of her extreme amount of malnutrition and deconditioning, we will put her in ICU overnight and on a ventilator. The findings above were explained to the patient and patient's family. We will probably put her on a TPN because of all the radiation, probably several days of malnutrition initially. DICTATING PHYSICIAN: TORIE FERNANDO M.D. [id number] PHY#: [id number] ID: [id number] JOB#: [id number] ACCT: [id number] cc:TORIE FERNANDO M.D. >
[2016-03-22] MEDS: LEVOTHYROXINE SODIUM INJ/PF 0.5 MG SDV IV SCH (11:06)
[2016-03-22] MEDS: FUROSEMIDE INJ/PF 40 MG/4 ML SDV IV SCH ×2 (11:07→21:31)
[2016-03-22] MEDS: TIOTROPIUM BROMIDE DPI 5 CAP/KIT (18 MCG/CAP) IH SCH (11:23)
[2016-03-22] MEDS: LORAZEPAM INJ 2 MG/1 ML VIAL IV PRN ×2 (16:16→22:29)
[2016-03-22] MEDS: AMINO ACIDS 5%/D25W 1,000 ML IV PRN (16:47)
[2016-03-22] MEDS: ERTAPENEM SODIUM 0.5 GM in NORMAL SALINE 50 ML IV SCH (21:31)
[2016-03-23] MEDS: LEVALBUTEROL HCL NEB 1.25 MG/3 ML AMPUL NEB SCH ×4 (02:45→19:36)
[2016-03-23 05:21] LABS: HEMATOCRIT 22.9 % (36.0-47.0); HGB HCT DIFFERENCE -0.4; MEAN CORPUSCULAR HEMOGLOBIN 30.7 pg (27.0-33.4); MEAN CORPUSCULAR HGB CONC 32.7 g/dL (32.0-36.0); MEAN CORPUSCULAR VOLUME 94 fl (80-97); RED BLOOD COUNT 2.45 10^6/uL (3.72-5.28); RED CELL DISTRIBUTION WIDTH 14.8 % (11.5-14.0); WHITE BLOOD COUNT 8.7 10^3/uL (4.0-10.5)
[2016-03-23 05:35] LABS: HEMOGLOBIN 7.5 g/dL (12.0-15.5)
[2016-03-23 05:38] LABS: BLOOD UREA NITROGEN 27 mg/dL (7-20); CALCIUM 8.1 mg/dL (8.4-10.2); CHLORIDE 110 mmol/L (98-107); CREATININE RESULT 1.56 mg/dL (0.52-1.25); GLUCOSE 159 mg/dL (75-110); POTASSIUM 3.3 mmol/L (3.6-5.0)
[2016-03-23 05:39] LABS: ALANINE AMINOTRANSFERASE 21 U/L (9-52); ALKALINE PHOSPHATASE 69 U/L (38-126); ANION GAP 8 (5-19); ASPARTATE AMINO TRANSFERASE 23 U/L (14-36); BILIRUBIN,TOTAL 0.3 mg/dL (0.2-1.3); CARBON DIOXIDE 22 mmol/L (22-30); MAGNESIUM 1.8 mg/dL (1.6-2.3); PHOSPHORUS 2.8 mg/dL (2.5-4.5); SODIUM 139.6 mmol/L (137-145); TOTAL PROTEIN 4.5 g/dL (6.3-8.2)
[2016-03-23 05:58] LABS: PREALBUMIN 7.6 mg/dL (17.6-36.0)
[2016-03-23] MEDS ORDERED: NORMAL SALINE 250 ML IV PRN (08:47)
[2016-03-23] MEDS ORDERED: FUROSEMIDE INJ/PF 40 MG/4 ML SDV IV PRN (08:47)
--- NOTE | 2016-03-23 09:01 | PDOC PROGRESS REPORT ---
Subjective Progress Note for:: 03/23/16 Subjective:: Patient is off the ventilator. She was placed on BiPAP, without any respiratory decompensation during the night. No reported temperature spikes. Remains nothing by mouth and nasogastric tube. Patient gets restless time to time and moaning. Trying to reach to pull out something. Patient still does not verbalize. Patient has good bowel sounds, according to the staff but no bowel movement. Physical Exam Vital Signs: Temp Pulse Resp BP Pulse Ox 97.6 F 92 17 139/63 H 92 03/23/16 08:00 03/23/16 08:00 03/23/16 08:00 03/23/16 08:00 03/23/16 08:00 Intake & Output 03/22/16 03/23/16 03/24/16 06:59 06:59 06:59 Intake Total 8197 2860 Output Total 2490 6045 150 Balance 5707 -3185 -150 Weight 54.7 kg 46.5 kg General appearance: PRESENT: thin, other - On BiPAP Head exam: PRESENT: normocephalic Eye exam: PRESENT: conjunctiva pale Mouth exam: PRESENT: moist, neck supple Neck exam: ABSENT: JVD Respiratory exam: PRESENT: decreased breath sounds, wheezes - Minimal and occasional bilateral Cardiovascular exam: PRESENT: RRR. ABSENT: gallop GI/Abdominal exam: PRESENT: hypoactive bowel sounds. ABSENT: distended Extremities exam: ABSENT: pedal edema Neurological exam: PRESENT: altered Focused psych exam: PRESENT: restlessness - Mildly Skin exam: PRESENT: dry, warm. ABSENT: cyanosis Results Laboratory Results: 03/23/16 05:05 03/23/16 05:05 03/20/16 03/22/16 03/23/16 13:14 16:40 05:05 WBC 8.7 RBC 2.45 L Hgb 7.5 L Hct 22.9 L MCV 94 MCH 30.7 MCHC 32.7 RDW 14.8 H Plt Count 173 Sodium Potassium Chloride Carbon Dioxide Anion Gap BUN Creatinine Est GFR ( Amer) Est GFR (Non-Af Amer) Glucose Calcium Phosphorus Magnesium Total Bilirubin AST ALT Alkaline Phosphatase Total Protein Albumin Prealbumin Triglycerides 68 Blood Type A POSITIVE Antibody Screen NEGATIVE 03/23/16 05:05 WBC RBC Hgb Hct MCV MCH MCHC RDW Plt Count Sodium 139.6 Potassium 3.3 L Chloride 110 H Carbon Dioxide 22 Anion Gap 8 BUN 27 H Creatinine 1.56 H Est GFR ( Amer) 39 L Est GFR (Non-Af Amer) 32 L Glucose 159 H Calcium 8.1 L Phosphorus 2.8 Magnesium 1.8 Total Bilirubin 0.3 AST 23 ALT 21 Alkaline Phosphatase 69 Total Protein 4.5 L Albumin 2.0 L Prealbumin 7.6 L Triglycerides Blood Type Antibody Screen Impressions: KUB X-Ray 03/19/16 00:00 IMPRESSION: Nasogastric tube tip in the stomach fundus, side port in the distal esophagus Abdomen/Pelvis CT 03/19/16 08:12 IMPRESSION: Findings worrisome for early or partial small bowel obstruction Abdomen X-Ray 03/20/16 00:00 IMPRESSION: Nonspecific intestinal bowel gas pattern without evidence for obstruction. Left renal calculi. Other findings as noted above Chest X-Ray 03/23/16 06:00 IMPRESSION: Tubes and lines in good positioning. No gross focal airspace disease Assessment & Plan - Diagnosis (1) Small bowel obstruction Is this a current diagnosis for this admission?: Yes (2) Chronic kidney disease (CKD) Qualifiers: Chronic kidney disease stage: stage 3 (moderate) Qualified Code(s): N18.3 - Chronic kidney disease, stage 3 (moderate) Is this a current diagnosis for this admission?: Yes (3) GERD (gastroesophageal reflux disease) Qualifiers: Esophagitis presence: esophagitis presence not specified Qualified Code(s): K21.9 - Gastro-esophageal reflux disease without esophagitis Is this a current diagnosis for this admission?: Yes (4) Rheumatoid arthritis Qualifiers: Rheumatoid arthritis location: unspecified site Rheumatoid factor presence: unspecified presence Qualified Code(s): M06.9 - Rheumatoid arthritis, unspecified Is this a current diagnosis for this admission?: Yes (5) Hypothyroidism (acquired) Is this a current diagnosis for this admission?: Yes (6) Anemia of chronic disease Is this a current diagnosis for this admission?: Yes (7) Hypertension Qualifiers: Hypertension type: essential hypertension Qualified Code(s): I10 - Essential (primary) hypertension Is this a current diagnosis for this admission?: Yes (8) COPD (chronic obstructive pulmonary disease) Qualifiers: COPD type: unspecified COPD Qualified Code(s): J44.9 - Chronic obstructive pulmonary disease, unspecified Is this a current diagnosis for this admission?: Yes - Time Time Spent with patient: 25-34 minutes - Plan Summary Plan Summary: We will continue pain management. We will try to treat for COPD exacerbation see if it will help her discomfort. We will transfuse 2 units of packed RBC hopefully might help weaning her off the BiPAP. We will replace potassium. Continue antibiotics. Continue TPN for now. Continue supportive care.
[2016-03-23] MEDS: LEVOTHYROXINE SODIUM INJ/PF 0.1 MG SDV IV SCH (09:48)
[2016-03-23] MEDS: METHYLPREDNISOLONE INJ 125 MG/2 ML SDV IV SCH ×2 (09:49→17:41)
[2016-03-23] MEDS: HYDROMORPHONE HCL INJ/PF 2 MG/ML AMPULE IV PRN ×2 (09:50→20:09)
[2016-03-23] MEDS: ENOXAPARIN SODIUM INJ 30 MG/0.3 ML DISP.SYRIN SUBCUT SCH (09:51)
[2016-03-23] MEDS: POTASSI CL 20 MEQ/50 ML RIDER 20 MEQ/50 ML RTUPB IV SCH ×3 (09:52→13:47)
[2016-03-23] MEDS: TIOTROPIUM BROMIDE DPI 5 CAP/KIT (18 MCG/CAP) IH SCH (09:55)
[2016-03-23] MEDS ORDERED: FUROSEMIDE INJ/PF 40 MG/4 ML SDV IV SCH (10:00)
[2016-03-23] MEDS: NORMAL SALINE 1000 ML 1,000 ML IV PRN (10:04)
[2016-03-23] MEDS: NORMAL SALINE 250 ML IV PRN ×2 (10:04→12:00)
[2016-03-23] MEDS: LORAZEPAM INJ 2 MG/1 ML VIAL IV PRN ×2 (12:00→18:25)
--- NOTE | 2016-03-23 12:41 | PDOC PROGRESS REPORT ---
Subjective Progress Note for:: 03/23/16 Subjective:: No ostomy output. No nausea or vomiting. Steady NG output with green liquid. Physical Exam Vital Signs: Temp Pulse Resp BP Pulse Ox 97.9 F 84 21 H 126/79 H 95 03/23/16 12:34 03/23/16 12:34 03/23/16 12:34 03/23/16 12:34 03/23/16 12:34 Intake & Output 03/22/16 03/23/16 03/24/16 06:59 06:59 06:59 Intake Total 8197 2860 350 Output Total 2490 6045 675 Balance 5707 -3185 -325 Weight 54.7 kg 46.5 kg General appearance: PRESENT: other - Currently on BiPAP settings. Fluttering her eyes to command, but no actual eye-opening response. Head exam: PRESENT: other - NG tube remains in. Switch from low continuous suction to low intermittent suction. Functioning appropriately. Approximately 400 mL's of green liquid/gastric contents. 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 GI/Abdominal exam: PRESENT: soft, other - No bowel sounds. Ostomy healthy pink. No ostomy output. Incision clean dry and intact without waffle dressing. NATHAN drain with serosanguineous fluid.. ABSENT: distended, tenderness Skin exam: ABSENT: jaundice Results Laboratory Results: 03/23/16 05:05 03/23/16 05:05 03/20/16 03/22/16 03/23/16 13:14 16:40 05:05 WBC 8.7 RBC 2.45 L Hgb 7.5 L Hct 22.9 L MCV 94 MCH 30.7 MCHC 32.7 RDW 14.8 H Plt Count 173 Sodium Potassium Chloride Carbon Dioxide Anion Gap BUN Creatinine Est GFR ( Amer) Est GFR (Non-Af Amer) Glucose Calcium Phosphorus Magnesium Total Bilirubin AST ALT Alkaline Phosphatase Total Protein Albumin Prealbumin Triglycerides 68 Blood Type A POSITIVE Antibody Screen NEGATIVE 03/23/16 05:05 WBC RBC Hgb Hct MCV MCH MCHC RDW Plt Count Sodium 139.6 Potassium 3.3 L Chloride 110 H Carbon Dioxide 22 Anion Gap 8 BUN 27 H Creatinine 1.56 H Est GFR ( Amer) 39 L Est GFR (Non-Af Amer) 32 L Glucose 159 H Calcium 8.1 L Phosphorus 2.8 Magnesium 1.8 Total Bilirubin 0.3 AST 23 ALT 21 Alkaline Phosphatase 69 Total Protein 4.5 L Albumin 2.0 L Prealbumin 7.6 L Triglycerides Blood Type Antibody Screen Impressions: KUB X-Ray 03/19/16 00:00 IMPRESSION: Nasogastric tube tip in the stomach fundus, side port in the distal esophagus Abdomen/Pelvis CT 03/19/16 08:12 IMPRESSION: Findings worrisome for early or partial small bowel obstruction Abdomen X-Ray 03/20/16 00:00 IMPRESSION: Nonspecific intestinal bowel gas pattern without evidence for obstruction. Left renal calculi. Other findings as noted above Chest X-Ray 03/23/16 06:00 IMPRESSION: Tubes and lines in good positioning. No gross focal airspace disease Assessment & Plan - Diagnosis (1) Small bowel obstruction Is this a current diagnosis for this admission?: YesPlan: Status post bowel resection. Postop day 2. Abdomen is benign. Await return of bowel function. Continue NG tube. We will add a daily PPI.
[2016-03-23] MEDS ORDERED: PANTOPRAZOLE SODIUM 40 MG VIAL IV ONE (13:30)
[2016-03-23] MEDS: AMINO ACIDS 5%/D25W 1,000 ML IV PRN (14:25)
[2016-03-23 17:01] LABS: HEMATOCRIT 34.5 % (36.0-47.0); HGB HCT DIFFERENCE 0.6; MEAN CORPUSCULAR HEMOGLOBIN 30.2 pg (27.0-33.4); RED BLOOD COUNT 3.89 10^6/uL (3.72-5.28); RED CELL DISTRIBUTION WIDTH 16.7 % (11.5-14.0); WHITE BLOOD COUNT 8.8 10^3/uL (4.0-10.5)
[2016-03-23 17:12] LABS: HEMOGLOBIN 11.7 g/dL (12.0-15.5)
[2016-03-23 17:13] LABS: MEAN CORPUSCULAR VOLUME 89 fl (80-97)
[2016-03-23] MEDS: ERTAPENEM SODIUM 0.5 GM in NORMAL SALINE 50 ML IV SCH (21:43)
[2016-03-24] MEDS: LEVALBUTEROL HCL NEB 1.25 MG/3 ML AMPUL NEB SCH ×4 (02:13→20:34)
[2016-03-24] MEDS: METHYLPREDNISOLONE INJ 125 MG/2 ML SDV IV SCH ×3 (02:22→18:12)
[2016-03-24] MEDS: HYDROMORPHONE HCL INJ/PF 2 MG/ML AMPULE IV PRN ×3 (05:57→19:58)
[2016-03-24] MEDS ORDERED: PANTOPRAZOLE SODIUM 40 MG VIAL IV SCH (06:00)
[2016-03-24 06:02] LABS: ALANINE AMINOTRANSFERASE 27 U/L (9-52); ALBUMIN 2.4 g/dL (3.5-5.0); ALKALINE PHOSPHATASE 70 U/L (38-126); ANION GAP 11 (5-19); ASPARTATE AMINO TRANSFERASE 17 U/L (14-36); BILIRUBIN,TOTAL 0.3 mg/dL (0.2-1.3); BLOOD UREA NITROGEN 37 mg/dL (7-20); CALCIUM 8.8 mg/dL (8.4-10.2); CARBON DIOXIDE 25 mmol/L (22-30); CHLORIDE 105 mmol/L (98-107); GLUCOSE 211 mg/dL (75-110); MAGNESIUM 1.8 mg/dL (1.6-2.3); PHOSPHORUS 2.6 mg/dL (2.5-4.5); POTASSIUM 3.9 mmol/L (3.6-5.0); TOTAL PROTEIN 4.9 g/dL (6.3-8.2); TRIGLYCERIDES 64 mg/dL (<150)
[2016-03-24 06:09] LABS: PREALBUMIN 9.4 mg/dL (17.6-36.0)
[2016-03-24 06:58] LABS: HEMATOCRIT 33.1 % (36.0-47.0); HEMOGLOBIN 11.1 g/dL (12.0-15.5); HGB HCT DIFFERENCE 0.2; MEAN CORPUSCULAR HEMOGLOBIN 29.8 pg (27.0-33.4); MEAN CORPUSCULAR HGB CONC 33.7 g/dL (32.0-36.0); MEAN CORPUSCULAR VOLUME 89 fl (80-97); RED BLOOD COUNT 3.73 10^6/uL (3.72-5.28); RED CELL DISTRIBUTION WIDTH 17.2 % (11.5-14.0); WHITE BLOOD COUNT 7.7 10^3/uL (4.0-10.5)
[2016-03-24 07:04] LABS: BAND NEUTROPHILS % (MANUAL) 1 % (3-5); BASOPHILS % (MANUAL) 0 % (0-2); EOSINOPHILS % (MANUAL) 0 % (0-6); LYMPHOCYTES % (MANUAL) 5 % (13-45); TOTAL CELLS COUNTED 100
[2016-03-24 07:05] LABS: ANISOCYTOSIS 1+; OVALOCYTES SLIGHT; POIKILOCYTOSIS SLIGHT; POLYCHROMASIA SLIGHT
[2016-03-24] MEDS: NORMAL SALINE 1000 ML 1,000 ML IV PRN (07:55)
[2016-03-24] MEDS: ENOXAPARIN SODIUM INJ 30 MG/0.3 ML DISP.SYRIN SUBCUT SCH (07:58)
--- NOTE | 2016-03-24 08:36 | PDOC PROGRESS REPORT ---
Subjective Progress Note for:: 03/24/16 Subjective:: Patient seems to be more awake today than yesterday but still will not verbalize. Patient moans intermittently. She does not require any more restraints. No reported respiratory distress, temperature spikes, nor agitation. Patient desaturated this morning, but she got Dilaudid. She is likewise on an as needed Ativan, but has been on Ativan chronically at home. No reported diarrhea. Remains nothing by mouth and on TPN. Physical Exam Vital Signs: Temp Pulse Resp BP Pulse Ox 98.0 F 85 9 L 161/73 H 92 03/24/16 08:00 03/24/16 02:13 03/24/16 06:00 03/24/16 05:22 03/24/16 06:00 Intake & Output 03/23/16 03/24/16 03/25/16 06:59 06:59 06:59 Intake Total 2860 2751 Output Total 6045 6145 125 Balance -3185 -3394 -125 Weight 46.5 kg 44.4 kg General appearance: PRESENT: no acute distress, thin, other - On BiPAP Head exam: PRESENT: normocephalic Eye exam: PRESENT: conjunctiva pale Mouth exam: PRESENT: moist, neck supple Neck exam: ABSENT: JVD Respiratory exam: PRESENT: clear to auscultation alexy, decreased breath sounds. ABSENT: rhonchi, wheezes Cardiovascular exam: PRESENT: RRR. ABSENT: gallop GI/Abdominal exam: PRESENT: hypoactive bowel sounds, soft. ABSENT: distended Extremities exam: ABSENT: pedal edema Neurological exam: PRESENT: awake, other - Nonverbal Skin exam: PRESENT: dry, warm. ABSENT: cyanosis Results Laboratory Results: 03/24/16 05:30 03/24/16 05:30 03/20/16 03/23/16 03/24/16 13:14 16:45 05:30 WBC 8.8 RBC 3.89 Hgb 11.7 L D Hct 34.5 L MCV 89 D MCH 30.2 MCHC 34.0 RDW 16.7 H Plt Count 164 Seg Neutrophils % Lymphocytes % Monocytes % Eosinophils % Basophils % Absolute Neutrophils Absolute Lymphocytes Absolute Monocytes Absolute Eosinophils Absolute Basophils Sodium 141.0 Potassium 3.9 Chloride 105 Carbon Dioxide 25 Anion Gap 11 BUN 37 H Creatinine 1.50 H Est GFR ( Amer) 41 L Est GFR (Non-Af Amer) 34 L Glucose 211 H Calcium 8.8 Phosphorus 2.6 Magnesium 1.8 Total Bilirubin 0.3 AST 17 ALT 27 Alkaline Phosphatase 70 Total Protein 4.9 L Albumin 2.4 L Prealbumin 9.4 L Triglycerides 64 Blood Type A POSITIVE Antibody Screen NEGATIVE 03/24/16 05:30 WBC 7.7 RBC 3.73 Hgb 11.1 L Hct 33.1 L MCV 89 MCH 29.8 MCHC 33.7 RDW 17.2 H Plt Count 179 Seg Neutrophils % Not Reportable Lymphocytes % Not Reportable Monocytes % Not Reportable Eosinophils % Not Reportable Basophils % Not Reportable Absolute Neutrophils Not Reportable Absolute Lymphocytes Not Reportable Absolute Monocytes Not Reportable Absolute Eosinophils Not Reportable Absolute Basophils Not Reportable Sodium Potassium Chloride Carbon Dioxide Anion Gap BUN Creatinine Est GFR ( Amer) Est GFR (Non-Af Amer) Glucose Calcium Phosphorus Magnesium Total Bilirubin AST ALT Alkaline Phosphatase Total Protein Albumin Prealbumin Triglycerides Blood Type Antibody Screen Impressions: KUB X-Ray 03/19/16 00:00 IMPRESSION: Nasogastric tube tip in the stomach fundus, side port in the distal esophagus Abdomen/Pelvis CT 03/19/16 08:12 IMPRESSION: Findings worrisome for early or partial small bowel obstruction Abdomen X-Ray 03/20/16 00:00 IMPRESSION: Nonspecific intestinal bowel gas pattern without evidence for obstruction. Left renal calculi. Other findings as noted above Chest X-Ray 03/23/16 06:00 IMPRESSION: Tubes and lines in good positioning. No gross focal airspace disease Assessment & Plan - Diagnosis (1) Small bowel obstruction Is this a current diagnosis for this admission?: Yes (2) Chronic kidney disease (CKD) Qualifiers: Chronic kidney disease stage: stage 3 (moderate) Qualified Code(s): N18.3 - Chronic kidney disease, stage 3 (moderate) Is this a current diagnosis for this admission?: Yes (3) GERD (gastroesophageal reflux disease) Qualifiers: Esophagitis presence: esophagitis presence not specified Qualified Code(s): K21.9 - Gastro-esophageal reflux disease without esophagitis Is this a current diagnosis for this admission?: Yes (4) Rheumatoid arthritis Qualifiers: Rheumatoid arthritis location: unspecified site Rheumatoid factor presence: unspecified presence Qualified Code(s): M06.9 - Rheumatoid arthritis, unspecified Is this a current diagnosis for this admission?: Yes (5) Hypothyroidism (acquired) Is this a current diagnosis for this admission?: Yes (6) Anemia of chronic disease Is this a current diagnosis for this admission?: Yes (7) Hypertension Qualifiers: Hypertension type: essential hypertension Qualified Code(s): I10 - Essential (primary) hypertension Is this a current diagnosis for this admission?: Yes (8) COPD (chronic obstructive pulmonary disease) Qualifiers: COPD type: unspecified COPD Qualified Code(s): J44.9 - Chronic obstructive pulmonary disease, unspecified Is this a current diagnosis for this admission?: Yes - Time Time Spent with patient: 25-34 minutes - Plan Summary Plan Summary: We will continue TPN and gentle hydration. Patient had a positive balance of 3 L. We will go ahead and cut back on the Lasix. In the meantime we will decrease her Dilaudid dose as well , likely contributing to the patient's desaturation. Continue antibiotics. Continue supportive care. Monitor electrolytes. Creatinine is improving. Metabolic acidosis likewise improved.
[2016-03-24] MEDS ORDERED: FUROSEMIDE INJ/PF 40 MG/4 ML SDV IV SCH (10:00)
[2016-03-24] MEDS ORDERED: FUROSEMIDE INJ/PF 20 MG/2 ML SDV IV SCH (10:00)
[2016-03-24] MEDS: LEVOTHYROXINE SODIUM INJ/PF 0.1 MG SDV IV SCH (10:22)
[2016-03-24] MEDS: TIOTROPIUM BROMIDE DPI 5 CAP/KIT (18 MCG/CAP) IH SCH (10:22)
--- NOTE | 2016-03-24 11:09 | PDOC PROGRESS REPORT ---
Subjective Subjective:: no N/V, very small piece of stool in ostomy, scant NG output since 0700. Physical Exam Vital Signs: Temp Pulse Resp BP Pulse Ox 98.0 F 85 9 L 161/73 H 92 03/24/16 08:00 03/24/16 02:13 03/24/16 06:00 03/24/16 05:22 03/24/16 06:00 Intake & Output 03/23/16 03/24/16 03/25/16 06:59 06:59 06:59 Intake Total 2860 2751 Output Total 6045 6145 125 Balance -3185 -3394 -125 Weight 46.5 kg 44.4 kg General appearance: PRESENT: other - on BIPAP, only moaning, will not follow commands, does push away my hands when I change dressing and milk the NATHAN drain. Head exam: PRESENT: other - bipap on, NG in. Respiratory exam: PRESENT: clear to auscultation alexy Cardiovascular exam: PRESENT: RRR GI/Abdominal exam: PRESENT: soft, tenderness - min tender when changing dressing and milking NATHAN. NATHAN with scant but slightly cloudy., other - inc c/d/i c dada. dressing changed.. ABSENT: distended, firm, guarding, rebound, rigid Gentrourinary exam: PRESENT: indwelling catheter Neurological exam: PRESENT: other - see general. ABSENT: alert, oriented to person, oriented to place, oriented to time, oriented to situation Skin exam: ABSENT: jaundice Results Laboratory Results: 03/24/16 05:30 03/24/16 05:30 03/20/16 03/23/16 03/24/16 13:14 16:45 05:30 WBC 8.8 RBC 3.89 Hgb 11.7 L D Hct 34.5 L MCV 89 D MCH 30.2 MCHC 34.0 RDW 16.7 H Plt Count 164 Seg Neutrophils % Lymphocytes % Monocytes % Eosinophils % Basophils % Absolute Neutrophils Absolute Lymphocytes Absolute Monocytes Absolute Eosinophils Absolute Basophils Sodium 141.0 Potassium 3.9 Chloride 105 Carbon Dioxide 25 Anion Gap 11 BUN 37 H Creatinine 1.50 H Est GFR ( Amer) 41 L Est GFR (Non-Af Amer) 34 L Glucose 211 H Calcium 8.8 Phosphorus 2.6 Magnesium 1.8 Total Bilirubin 0.3 AST 17 ALT 27 Alkaline Phosphatase 70 Total Protein 4.9 L Albumin 2.4 L Prealbumin 9.4 L Triglycerides 64 Blood Type A POSITIVE Antibody Screen NEGATIVE 03/24/16 05:30 WBC 7.7 RBC 3.73 Hgb 11.1 L Hct 33.1 L MCV 89 MCH 29.8 MCHC 33.7 RDW 17.2 H Plt Count 179 Seg Neutrophils % Not Reportable Lymphocytes % Not Reportable Monocytes % Not Reportable Eosinophils % Not Reportable Basophils % Not Reportable Absolute Neutrophils Not Reportable Absolute Lymphocytes Not Reportable Absolute Monocytes Not Reportable Absolute Eosinophils Not Reportable Absolute Basophils Not Reportable Sodium Potassium Chloride Carbon Dioxide Anion Gap BUN Creatinine Est GFR ( Amer) Est GFR (Non-Af Amer) Glucose Calcium Phosphorus Magnesium Total Bilirubin AST ALT Alkaline Phosphatase Total Protein Albumin Prealbumin Triglycerides Blood Type Antibody Screen Impressions: KUB X-Ray 03/19/16 00:00 IMPRESSION: Nasogastric tube tip in the stomach fundus, side port in the distal esophagus Abdomen/Pelvis CT 03/19/16 08:12 IMPRESSION: Findings worrisome for early or partial small bowel obstruction Abdomen X-Ray 03/20/16 00:00 IMPRESSION: Nonspecific intestinal bowel gas pattern without evidence for obstruction. Left renal calculi. Other findings as noted above Chest X-Ray 03/23/16 06:00 IMPRESSION: Tubes and lines in good positioning. No gross focal airspace disease Assessment & Plan - Diagnosis (1) Small bowel obstruction Is this a current diagnosis for this admission?: YesPlan: small small, some bowel sounds, less NG output: start clamp trial. decreased responsiveness, was living alone prior to admissiom: head CT. Spoke to hospitalist.
[2016-03-24] MEDS: AMINO ACIDS 5%/D25W 1,000 ML IV PRN (14:57)
[2016-03-24] MEDS: LORAZEPAM INJ 2 MG/1 ML VIAL IV PRN (18:12)
[2016-03-24] MEDS: ERTAPENEM SODIUM 0.5 GM in NORMAL SALINE 50 ML IV SCH (21:04)
[2016-03-25] MEDS: HYDROMORPHONE HCL INJ/PF 2 MG/ML AMPULE IV PRN ×2 (00:30→09:38)
[2016-03-25] MEDS: LEVALBUTEROL HCL NEB 1.25 MG/3 ML AMPUL NEB SCH ×4 (02:38→19:46)
[2016-03-25] MEDS: METHYLPREDNISOLONE INJ 125 MG/2 ML SDV IV SCH ×4 (03:14→21:30)
[2016-03-25 05:25] LABS: ALANINE AMINOTRANSFERASE 28 U/L (9-52); ALBUMIN 2.8 g/dL (3.5-5.0); ALKALINE PHOSPHATASE 103 U/L (38-126); ANION GAP 10 (5-19); ASPARTATE AMINO TRANSFERASE 19 U/L (14-36); BILIRUBIN,TOTAL 0.3 mg/dL (0.2-1.3); BLOOD UREA NITROGEN 49 mg/dL (7-20); CARBON DIOXIDE 28 mmol/L (22-30); CHLORIDE 105 mmol/L (98-107); CREATININE RESULT 1.64 mg/dL (0.52-1.25); GLUCOSE 182 mg/dL (75-110); PHOSPHORUS 2.9 mg/dL (2.5-4.5); SODIUM 143.4 mmol/L (137-145); TOTAL PROTEIN 5.2 g/dL (6.3-8.2)
[2016-03-25] MEDS: LORAZEPAM INJ 2 MG/1 ML VIAL IV PRN ×3 (05:25→22:45)
[2016-03-25] MEDS: ENOXAPARIN SODIUM INJ 30 MG/0.3 ML DISP.SYRIN SUBCUT SCH (08:54)
[2016-03-25] MEDS ORDERED: FAT EMULSIONS 250 ML IV SCH (10:00)
[2016-03-25] MEDS: TIOTROPIUM BROMIDE DPI 5 CAP/KIT (18 MCG/CAP) IH SCH (10:29)
--- NOTE | 2016-03-25 10:46 | PDOC PROGRESS REPORT ---
Subjective Progress Note for:: 03/25/16 Subjective:: Patient awake and obeys commands but does not speak. No acute distress. Patient is on BiPAP. Physical Exam Vital Signs: Temp Pulse Resp BP Pulse Ox 97.4 F 94 20 175/72 H 91 L 03/25/16 07:18 03/25/16 08:11 03/25/16 08:11 03/25/16 07:18 03/25/16 08:11 Intake & Output 03/24/16 03/25/16 03/26/16 06:59 06:59 06:59 Intake Total 2751 2117 Output Total 6176 2080 Balance -3394 37 Weight 44.4 kg 46 kg General appearance: PRESENT: no acute distress Respiratory exam: PRESENT: clear to auscultation alexy - With decreased breath sounds at the bases. Cardiovascular exam: PRESENT: RRR GI/Abdominal exam: PRESENT: other - Soft, nondistended, apparent mild diffuse tenderness without peritoneal signs. Drain putting out serosanguineous fluid. Ostomy is pink but has no output. No air in the ostomy bag. Decreased bowel sounds. NG output is bile tinged. Extremities exam: PRESENT: other - No swelling and no apparent tenderness. Results Laboratory Results: 03/24/16 05:30 03/25/16 04:30 03/25/16 04:30 Sodium 143.4 Potassium 4.0 Chloride 105 Carbon Dioxide 28 Anion Gap 10 BUN 49 H Creatinine 1.64 H Est GFR ( Amer) 37 L Est GFR (Non-Af Amer) 30 L Glucose 182 H Calcium 9.0 Phosphorus 2.9 Total Bilirubin 0.3 AST 19 ALT 28 Alkaline Phosphatase 103 Total Protein 5.2 L Albumin 2.8 L Impressions: Abdomen/Pelvis CT 03/19/16 08:12 IMPRESSION: Findings worrisome for early or partial small bowel obstruction Abdomen X-Ray 03/20/16 00:00 IMPRESSION: Nonspecific intestinal bowel gas pattern without evidence for obstruction. Left renal calculi. Other findings as noted above Head CT 03/24/16 00:00 IMPRESSION: CHRONIC CHANGES OF ATROPHY AND MICROVASCULAR ISCHEMIA. NO ACUTE PROCESS. Chest X-Ray 03/25/16 00:00 IMPRESSION: No focal infiltrates. Tubes and lines in good positioning KUB X-Ray 03/25/16 00:00 IMPRESSION: Nonobstructive bowel gas pattern. Assessment & Plan - Diagnosis (1) Small bowel obstruction Is this a current diagnosis for this admission?: YesPlan: Status post exploratory laparotomy with small bowel resection. Patient with postoperative ileus. Continue supportive care. Would keep the NG tube and until she has good bowel function and especially with her being on BiPAP.
[2016-03-25] MEDS: NORMAL SALINE 1000 ML 1,000 ML IV PRN (11:02)
[2016-03-25] MEDS: LEVOTHYROXINE SODIUM INJ/PF 0.1 MG SDV IV SCH (11:13)
[2016-03-25] MEDS ORDERED: NORMAL SALINE 1000 ML 1,000 ML IV PRN (11:24)
[2016-03-25] MEDS: AMINO ACIDS 5%/D25W 1,000 ML IV PRN (11:31)
[2016-03-25 11:32] LABS: HEMATOCRIT 33.5 % (36.0-47.0); HGB HCT DIFFERENCE -0.5; MEAN CORPUSCULAR HEMOGLOBIN 29.4 pg (27.0-33.4); MEAN CORPUSCULAR HGB CONC 32.7 g/dL (32.0-36.0); MEAN CORPUSCULAR VOLUME 90 fl (80-97); RED BLOOD COUNT 3.74 10^6/uL (3.72-5.28); RED CELL DISTRIBUTION WIDTH 16.6 % (11.5-14.0); WHITE BLOOD COUNT 7.9 10^3/uL (4.0-10.5)
[2016-03-25] MEDS: INSULIN REG, HUMAN 100 UNIT/ML 3 ML VIAL (PYX) SUBCUT PRN ×2 (11:33→17:20)
[2016-03-25] MEDS ORDERED: MORPHINE SULFATE 10 MG/ML INJ IV PRN (11:46)
[2016-03-25 11:59] LABS: BASOPHILS % (MANUAL) 0 % (0-2); EOSINOPHILS % (MANUAL) 0 % (0-6); LYMPHOCYTES % (MANUAL) 7 % (13-45); TOTAL CELLS COUNTED 100
[2016-03-25 12:01] LABS: ANISOCYTOSIS 1+; POLYCHROMASIA SLIGHT; TOXIC GRANULATION 1+
[2016-03-25] MEDS: MORPHINE SULFATE 10 MG/ML INJ IV PRN ×2 (20:12→23:42)
--- NOTE | 2016-03-26 00:49 | PDOC PROGRESS REPORT ---
Subjective Progress Note for:: 03/25/16 Subjective:: Unable to obtain review of systems from patient. Physical Exam Vital Signs: Temp Pulse Resp BP Pulse Ox 97.4 F 100 20 175/72 H 96 03/25/16 07:18 03/25/16 07:18 03/25/16 07:18 03/25/16 07:18 03/25/16 07:18 Intake & Output 03/24/16 03/25/16 03/26/16 06:59 06:59 06:59 Intake Total 2751 2117 Output Total 6189 2080 Balance -3394 37 Weight 44.4 kg 46 kg Exam: General: Eyes open, localizes to pain, tachypnea, on BiPAP, moderate respiratory distress, thin, chronically ill-appearing HEENT: AT/NC, PERRL, EOMI, oropharynx is dry, pink, no scleral icterus, no conjunctival injection, temporal muscle wasting Neck: No JVD, trachea midline Chest: Clear to auscultation bilaterally, no wheezes rhonchi or rales CV: Regular rate and rhythm, normal S1 and S2, no rub or gallop Abdomen: Soft, nontender to palpation, nondistended, active bowel sounds; no rebound, rigidity, or guarding Extremities: No cyanosis, clubbing or edema Neuro: Moves all extremities Results Laboratory Results: 03/24/16 05:30 03/25/16 04:30 03/25/16 04:30 Sodium 143.4 Potassium 4.0 Chloride 105 Carbon Dioxide 28 Anion Gap 10 BUN 49 H Creatinine 1.64 H Est GFR ( Amer) 37 L Est GFR (Non-Af Amer) 30 L Glucose 182 H Calcium 9.0 Phosphorus 2.9 Total Bilirubin 0.3 AST 19 ALT 28 Alkaline Phosphatase 103 Total Protein 5.2 L Albumin 2.8 L Impressions: KUB X-Ray 03/19/16 00:00 IMPRESSION: Nasogastric tube tip in the stomach fundus, side port in the distal esophagus Abdomen/Pelvis CT 03/19/16 08:12 IMPRESSION: Findings worrisome for early or partial small bowel obstruction Abdomen X-Ray 03/20/16 00:00 IMPRESSION: Nonspecific intestinal bowel gas pattern without evidence for obstruction. Left renal calculi. Other findings as noted above Chest X-Ray 03/23/16 06:00 IMPRESSION: Tubes and lines in good positioning. No gross focal airspace disease Head CT 03/24/16 00:00 IMPRESSION: CHRONIC CHANGES OF ATROPHY AND MICROVASCULAR ISCHEMIA. NO ACUTE PROCESS. Assessment & Plan - Diagnosis (1) Mesenteric ischemia Is this a current diagnosis for this admission?: YesPlan: Defer to surgical team for initiation of anticoagulation (2) Postoperative ileus Is this a current diagnosis for this admission?: YesPlan: Continue NG tube and nothing by mouth status. Continue TPN (3) Acute encephalopathy Is this a current diagnosis for this admission?: YesPlan: Likely multifactorial due to opiate withdrawal, benzoin has been withdrawal, severe sepsis. (4) COPD (chronic obstructive pulmonary disease) Qualifiers: COPD type: unspecified COPD Qualified Code(s): J44.9 - Chronic obstructive pulmonary disease, unspecified Is this a current diagnosis for this admission?: Yes (5) Hypertension Qualifiers: Hypertension type: essential hypertension Qualified Code(s): I10 - Essential (primary) hypertension Is this a current diagnosis for this admission?: Yes (6) Hypothyroidism (acquired) Is this a current diagnosis for this admission?: YesPlan: Continue IV Synthroid (7) Diastolic CHF Qualifiers: Congestive heart failure chronicity: chronic Qualified Code(s): I50.32 - Chronic diastolic (congestive) heart failure Is this a current diagnosis for this admission?: YesPlan: Patient with recent echo on 05/05/2015 revealing EF greater than 60% and grade 1 diastolic dysfunction (8) Rheumatoid arthritis Qualifiers: Rheumatoid arthritis location: unspecified site Rheumatoid factor presence: unspecified presence Qualified Code(s): M06.9 - Rheumatoid arthritis, unspecified Is this a current diagnosis for this admission?: YesPlan: Increase morphine - Time Time Spent with patient: 35 or more minutes Medications reviewed and adjusted accordingly: Yes
[2016-03-26] MEDS ORDERED: MORPHINE SULFATE 10 MG/ML INJ ONE ×2 (00:54→06:02)
--- NOTE | 2016-03-26 01:37 | PDOC PROGRESS REPORT ---
Subjective Progress Note for:: 03/26/16 Subjective:: pt noted with more confusion and agitation tonight Physical Exam Vital Signs: Temp Pulse Resp BP Pulse Ox 98.1 F 101 H 22 H 165/61 H 98 03/25/16 20:06 03/25/16 20:06 03/25/16 20:06 03/25/16 20:06 03/25/16 20:06 Intake & Output 03/24/16 03/25/16 03/26/16 06:59 06:59 06:59 Intake Total 2751 2117 0 Output Total 6145 2080 2100 Balance -3394 37 -2100 Weight 44.4 kg 46 kg General appearance: PRESENT: other - confused, nonverbal Respiratory exam: PRESENT: clear to auscultation alexy Cardiovascular exam: PRESENT: tachycardia - mild tachy. GI/Abdominal exam: PRESENT: other - soft, nd, no apparent tenderness. drain serosanguinous.ostomy pink. no output. Results Laboratory Results: 03/25/16 04:30 03/25/16 04:30 03/25/16 03/25/16 04:30 04:30 WBC 7.9 RBC 3.74 Hgb 11.0 L Hct 33.5 L MCV 90 MCH 29.4 MCHC 32.7 RDW 16.6 H Plt Count 211 Seg Neutrophils % Not Reportable Lymphocytes % Not Reportable Monocytes % Not Reportable Eosinophils % Not Reportable Basophils % Not Reportable Absolute Neutrophils Not Reportable Absolute Lymphocytes Not Reportable Absolute Monocytes Not Reportable Absolute Eosinophils Not Reportable Absolute Basophils Not Reportable Sodium 143.4 Potassium 4.0 Chloride 105 Carbon Dioxide 28 Anion Gap 10 BUN 49 H Creatinine 1.64 H Est GFR ( Amer) 37 L Est GFR (Non-Af Amer) 30 L Glucose 182 H Calcium 9.0 Phosphorus 2.9 Total Bilirubin 0.3 AST 19 ALT 28 Alkaline Phosphatase 103 Total Protein 5.2 L Albumin 2.8 L EKG Comments: sinus tach with no ischemic changes. Impressions: Abdomen/Pelvis CT 03/19/16 08:12 IMPRESSION: Findings worrisome for early or partial small bowel obstruction Abdomen X-Ray 03/20/16 00:00 IMPRESSION: Nonspecific intestinal bowel gas pattern without evidence for obstruction. Left renal calculi. Other findings as noted above Head CT 03/24/16 00:00 IMPRESSION: CHRONIC CHANGES OF ATROPHY AND MICROVASCULAR ISCHEMIA. NO ACUTE PROCESS. Chest X-Ray 03/25/16 00:00 IMPRESSION: No focal infiltrates. Tubes and lines in good positioning KUB X-Ray 03/25/16 00:00 IMPRESSION: Nonobstructive bowel gas pattern. Assessment & Plan - Diagnosis (1) Small bowel obstruction Is this a current diagnosis for this admission?: YesPlan: Status post exploratory laparotomy with small bowel resection. Patient with postoperative ileus. Continue supportive care. Would keep the NG tube and until she has good bowel function. pt continues to be confused and agitated. I do not think she has abdominal sepsis-- no apparent tenderness with flat soft abdomen. excellent urine output. hypertensive. currently on morphine and ativan. need to address better sedation protocol in am with hospitalist.
[2016-03-26] MEDS ORDERED: MORPHINE SULFATE 10 MG/ML INJ IV ONE ×2 (02:00→07:00)
[2016-03-26] MEDS: LEVALBUTEROL HCL NEB 1.25 MG/3 ML AMPUL NEB SCH ×4 (02:41→20:55)
[2016-03-26] MEDS ORDERED: LORAZEPAM INJ 2 MG/1 ML VIAL IV PRN (03:13)
[2016-03-26 03:40] LABS: ANION GAP 8 (5-19); BLOOD UREA NITROGEN 52 mg/dL (7-20); CALCIUM 8.7 mg/dL (8.4-10.2); CARBON DIOXIDE 30 mmol/L (22-30); CHLORIDE 105 mmol/L (98-107); CREATININE RESULT 1.47 mg/dL (0.52-1.25); GLUCOSE 187 mg/dL (75-110); POTASSIUM 3.8 mmol/L (3.6-5.0); SODIUM 143.1 mmol/L (137-145)
[2016-03-26 03:55] LABS: HEMATOCRIT 31.9 % (36.0-47.0); HEMOGLOBIN 10.6 g/dL (12.0-15.5); HGB HCT DIFFERENCE -0.1; MEAN CORPUSCULAR HEMOGLOBIN 29.6 pg (27.0-33.4); MEAN CORPUSCULAR HGB CONC 33.1 g/dL (32.0-36.0); MEAN CORPUSCULAR VOLUME 89 fl (80-97); RED BLOOD COUNT 3.57 10^6/uL (3.72-5.28); RED CELL DISTRIBUTION WIDTH 16.4 % (11.5-14.0); WHITE BLOOD COUNT 8.6 10^3/uL (4.0-10.5)
[2016-03-26 03:57] LABS: ANISOCYTOSIS SLIGHT; BASOPHILS % (MANUAL) 0 % (0-2); EOSINOPHILS % (MANUAL) 0 % (0-6); LYMPHOCYTES % (MANUAL) 4 % (13-45); OVALOCYTES SLIGHT; TOTAL CELLS COUNTED 100; TOXIC GRANULATION 1+
[2016-03-26] MEDS: MORPHINE SULFATE 10 MG/ML INJ IV PRN ×3 (04:45→22:45)
[2016-03-26] MEDS: AMINO ACIDS 5%/D25W 1,000 ML IV PRN ×2 (04:49→22:45)
[2016-03-26] MEDS: METHYLPREDNISOLONE INJ 125 MG/2 ML SDV IV SCH ×3 (05:26→22:45)
[2016-03-26] MEDS: HYDRALAZINE HCL INJ/PF 20 MG/1 ML SDV IV PRN (05:38)
[2016-03-26] MEDS ORDERED: HALOPERIDOL LACTATE INJ 5 MG/1 ML VIAL ONE (06:01)
[2016-03-26] MEDS ORDERED: HALOPERIDOL LACTATE INJ 5 MG/1 ML VIAL IV ONE (06:30)
[2016-03-26] MEDS: ENOXAPARIN SODIUM INJ 30 MG/0.3 ML DISP.SYRIN SUBCUT SCH (08:01)
[2016-03-26] MEDS ORDERED: POTASSI CL 20 MEQ/50 ML RIDER 20 MEQ/50 ML RTUPB IV ONE (10:00)
[2016-03-26] MEDS ORDERED: FENTANYL 25 MCG/HR PATCH.TD72 TD SCH (10:00)
[2016-03-26 10:41] LABS: MAGNESIUM 2.1 mg/dL (1.6-2.3); PHOSPHORUS 2.7 mg/dL (2.5-4.5)
[2016-03-26] MEDS: TIOTROPIUM BROMIDE DPI 5 CAP/KIT (18 MCG/CAP) IH SCH (11:08)
[2016-03-26] MEDS: NORMAL SALINE 1000 ML 1,000 ML IV PRN ×2 (12:30→20:43)
--- NOTE | 2016-03-26 12:41 | EKG REPORT ---
SEVERITY:- OTHERWISE NORMAL ECG - SINUS TACHYCARDIA : Confirmed by: Alo Henson 26-Mar-2016 12:40:05
[2016-03-26] MEDS ORDERED: PHARMACY COMMUNICATION ORDER MC NR (12:45)
[2016-03-26] MEDS: LEVOTHYROXINE SODIUM INJ/PF 0.1 MG SDV IV SCH (12:45)
--- NOTE | 2016-03-26 12:52 | PDOC PROGRESS REPORT ---
Subjective Subjective:: No nausea vomiting. NG tube in place. No ostomy output. Patient may have greater use of narcotics and benzodiazepines as an outpatient than originally indicated. Hospitalist has been working to strike an appropriate balance. Continued mental status changes without significant intentional responses and still not following commands. Family has been engaged in long-term planning. Physical Exam Vital Signs: Temp Pulse Resp BP Pulse Ox 97.4 F 104 H 17 157/80 H 95 03/26/16 08:00 03/26/16 08:20 03/26/16 08:20 03/26/16 08:00 03/26/16 08:00 Intake & Output 03/25/16 03/26/16 03/27/16 06:59 06:59 06:59 Intake Total 2117 3345 Output Total 0 2900 Balance 37 445 Weight 46 kg 46 kg General appearance: PRESENT: other - Does not appear to be in distress, but continued mental status changes without significant intentional responses and still not following commands. Head exam: PRESENT: normocephalic, other - NG tube in place. Low volume outputs , but still darker gastric/bilious. Mouth exam: PRESENT: other - Oropharynx was swabbed and film removed off her lip. GI/Abdominal exam: PRESENT: soft, other - Some bowel sounds detected in the left lower quadrant. Ostomy with 2 small pieces of dry stool. Incision clean dry and intact with dada. No evidence of infection. NATHAN with serous, but still slightly murky.. ABSENT: distended, firm, guarding, rebound, rigid, tenderness Neurological exam: PRESENT: alert, oriented to situation Psychiatric exam: PRESENT: other - Continued mental status changes without significant intentional responses and still not following commands. Skin exam: ABSENT: jaundice Results Laboratory Results: 03/26/16 03:00 03/26/16 03:00 03/26/16 03/26/16 03/26/16 03:00 03:00 03:00 WBC 8.6 RBC 3.57 L Hgb 10.6 L Hct 31.9 L MCV 89 MCH 29.6 MCHC 33.1 RDW 16.4 H Plt Count 193 Seg Neutrophils % Not Reportable Lymphocytes % Not Reportable Monocytes % Not Reportable Eosinophils % Not Reportable Basophils % Not Reportable Absolute Neutrophils Not Reportable Absolute Lymphocytes Not Reportable Absolute Monocytes Not Reportable Absolute Eosinophils Not Reportable Absolute Basophils Not Reportable Sodium 143.1 Potassium 3.8 Chloride 105 Carbon Dioxide 30 Anion Gap 8 BUN 52 H Creatinine 1.47 H Est GFR ( Amer) 42 L Est GFR (Non-Af Amer) 34 L Glucose 187 H Calcium 8.7 Phosphorus 2.7 Magnesium 2.1 Impressions: Abdomen/Pelvis CT 03/19/16 08:12 IMPRESSION: Findings worrisome for early or partial small bowel obstruction Abdomen X-Ray 03/20/16 00:00 IMPRESSION: Nonspecific intestinal bowel gas pattern without evidence for obstruction. Left renal calculi. Other findings as noted above Head CT 03/24/16 00:00 IMPRESSION: CHRONIC CHANGES OF ATROPHY AND MICROVASCULAR ISCHEMIA. NO ACUTE PROCESS. Chest X-Ray 03/25/16 00:00 IMPRESSION: No focal infiltrates. Tubes and lines in good positioning KUB X-Ray 03/25/16 00:00 IMPRESSION: Nonobstructive bowel gas pattern. Assessment & Plan - Diagnosis (1) Small bowel obstruction Is this a current diagnosis for this admission?: YesPlan: Good diuresis over the past 2-3 days. Probably returning to what is most likely her baseline BUN/creatinine. Abdomen is soft and flat. Finally hurts in bowel sounds today. NG output is decreasing somewhat. Hopefully we'll have return of bowel function in the next couple days. Discussed the case extensively with hospitalist. She is very frail and now missing 200 cm of small intestine. No indication of short gut syndrome at this point, but possibly would be a long-term sequelae. Family is engaged in long-term planning. Hospitalist is striking the balance of narcotics and benzodiazepines in light of what was probably more outpatient use than originally realized.
[2016-03-26] MEDS: LORAZEPAM INJ 2 MG/1 ML VIAL IV SCH ×2 (14:50→22:45)
[2016-03-26] MEDS ORDERED: ERTAPENEM SODIUM 0.5 GM in NORMAL SALINE 50 ML IV SCH (15:00)
--- NOTE | 2016-03-26 19:25 | PDOC PROGRESS REPORT ---
Subjective Progress Note for:: 03/26/16 Subjective:: Overnight, patient had a bout of confusion with complaints of abdominal pain. Patient currently moaning. Patient family at bedside. Unable to obtain review of systems secondary to encephalopathy. Physical Exam Vital Signs: Temp Pulse Resp BP Pulse Ox 97.8 F 94 20 175/87 H 98 03/26/16 04:09 03/26/16 02:41 03/26/16 02:41 03/26/16 05:35 03/26/16 05:35 Intake & Output 03/25/16 03/26/16 03/27/16 06:59 06:59 06:59 Intake Total 2116 1820 Output Total 2079 2900 Balance 37 -1080 Weight 46 kg 46 kg Exam: General: Eyes open, localizes to pain, tachypnea, moderate pain, thin, chronically ill-appearing HEENT: AT/NC,oropharynx is dry, shallow tongue ulcerations, pink, no scleral icterus, no conjunctival injection, temporal muscle wasting Neck: No JVD, trachea midline Chest: Clear to auscultation bilaterally, no wheezes rhonchi or rales CV: Regular rate and rhythm, normal S1 and S2, no rub or gallop Abdomen: Soft, diffusely tender to palpation, nondistended, absent bowel sounds ; no rebound, rigidity; midline incision well healing, right lower quadrant NATHAN drain draining serous sanguinous fluid with surrounding erythema of the exit site Extremities: No cyanosis, clubbing or edema Neuro: Moves all extremities Results Laboratory Results: 03/26/16 03:00 03/26/16 03:00 03/25/16 03/26/16 03/26/16 04:30 03:00 03:00 WBC 7.9 8.6 RBC 3.74 3.57 L Hgb 11.0 L 10.6 L Hct 33.5 L 31.9 L MCV 90 89 MCH 29.4 29.6 MCHC 32.7 33.1 RDW 16.6 H 16.4 H Plt Count 211 193 Seg Neutrophils % Not Reportable Not Reportable Lymphocytes % Not Reportable Not Reportable Monocytes % Not Reportable Not Reportable Eosinophils % Not Reportable Not Reportable Basophils % Not Reportable Not Reportable Absolute Neutrophils Not Reportable Not Reportable Absolute Lymphocytes Not Reportable Not Reportable Absolute Monocytes Not Reportable Not Reportable Absolute Eosinophils Not Reportable Not Reportable Absolute Basophils Not Reportable Not Reportable Sodium 143.1 Potassium 3.8 Chloride 105 Carbon Dioxide 30 Anion Gap 8 BUN 52 H Creatinine 1.47 H Est GFR ( Amer) 42 L Est GFR (Non-Af Amer) 34 L Glucose 187 H Calcium 8.7 Impressions: Abdomen/Pelvis CT 03/19/16 08:12 IMPRESSION: Findings worrisome for early or partial small bowel obstruction Abdomen X-Ray 03/20/16 00:00 IMPRESSION: Nonspecific intestinal bowel gas pattern without evidence for obstruction. Left renal calculi. Other findings as noted above Head CT 03/24/16 00:00 IMPRESSION: CHRONIC CHANGES OF ATROPHY AND MICROVASCULAR ISCHEMIA. NO ACUTE PROCESS. Chest X-Ray 03/25/16 00:00 IMPRESSION: No focal infiltrates. Tubes and lines in good positioning KUB X-Ray 03/25/16 00:00 IMPRESSION: Nonobstructive bowel gas pattern. Assessment & Plan - Diagnosis (1) Small bowel obstruction with strangulation or infarction Is this a current diagnosis for this admission?: YesPlan: Patient had a small bowel obstruction likely secondary to adhesions with significant narrowing. Defer to surgery service for treatment and evaluation of intra-abdominal processes related to this condition. (2) Postoperative ileus Is this a current diagnosis for this admission?: YesPlan: Continue NG tube. Will attempt to maintain a potassium of 4 or greater and magnesium of 2. (3) Acute encephalopathy Is this a current diagnosis for this admission?: YesPlan: Likely multifactorial due to opiate withdrawal, benzodiazepine withdrawal, severe sepsis. (4) COPD (chronic obstructive pulmonary disease) Qualifiers: COPD type: unspecified COPD Qualified Code(s): J44.9 - Chronic obstructive pulmonary disease, unspecified Is this a current diagnosis for this admission?: Yes (5) Hypertension Qualifiers: Hypertension type: essential hypertension Qualified Code(s): I10 - Essential (primary) hypertension Is this a current diagnosis for this admission?: Yes (6) Hypothyroidism (acquired) Is this a current diagnosis for this admission?: YesPlan: Continue IV Synthroid (7) Diastolic CHF Qualifiers: Congestive heart failure chronicity: chronic Qualified Code(s): I50.32 - Chronic diastolic (congestive) heart failure Is this a current diagnosis for this admission?: Yes (8) Rheumatoid arthritis Qualifiers: Rheumatoid arthritis location: unspecified site Rheumatoid factor presence: unspecified presence Qualified Code(s): M06.9 - Rheumatoid arthritis, unspecified Is this a current diagnosis for this admission?: Yes (9) Small bowel obstruction due to adhesions Is this a current diagnosis for this admission?: Yes (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 Patient currently on TPN. Concern for short gut syndrome. Patient with muscle wasting and profound weakness. Unable to take by mouth secondary to ileus and recent abdominal surgery. - Time Time Spent with patient: 35 or more minutes Medications reviewed and adjusted accordingly: Yes
[2016-03-27] MEDS: INSULIN REG, HUMAN 100 UNIT/ML 3 ML VIAL (PYX) SUBCUT PRN (01:14)
[2016-03-27] MEDS: HALOPERIDOL LACTATE INJ 5 MG/1 ML VIAL IV PRN ×2 (01:25→08:00)
[2016-03-27] MEDS: HYDRALAZINE HCL INJ/PF 20 MG/1 ML SDV IV PRN (01:26)
[2016-03-27] MEDS: LEVALBUTEROL HCL NEB 1.25 MG/3 ML AMPUL NEB SCH ×2 (02:45→08:58)
[2016-03-27] MEDS: NORMAL SALINE 1000 ML 1,000 ML IV PRN (04:56)
[2016-03-27] MEDS: METHYLPREDNISOLONE INJ 125 MG/2 ML SDV IV SCH (06:27)
[2016-03-27] MEDS: LORAZEPAM INJ 2 MG/1 ML VIAL IV SCH ×2 (06:27→14:30)
[2016-03-27] MEDS: MORPHINE SULFATE 10 MG/ML INJ IV PRN ×2 (06:48→08:00)
[2016-03-27] MEDS: TIOTROPIUM BROMIDE DPI 5 CAP/KIT (18 MCG/CAP) IH SCH (08:01)
[2016-03-27 08:36] LABS: HEMATOCRIT 34.1 % (36.0-47.0); HEMOGLOBIN 10.9 g/dL (12.0-15.5); HGB HCT DIFFERENCE -1.4; MEAN CORPUSCULAR HEMOGLOBIN 29.3 pg (27.0-33.4); MEAN CORPUSCULAR HGB CONC 32.1 g/dL (32.0-36.0); MEAN CORPUSCULAR VOLUME 91 fl (80-97); RED BLOOD COUNT 3.74 10^6/uL (3.72-5.28); RED CELL DISTRIBUTION WIDTH 16.5 % (11.5-14.0); WHITE BLOOD COUNT 13.9 10^3/uL (4.0-10.5)
[2016-03-27 08:50] LABS: ANION GAP 9 (5-19); BLOOD UREA NITROGEN 53 mg/dL (7-20); CALCIUM 8.5 mg/dL (8.4-10.2); CARBON DIOXIDE 28 mmol/L (22-30); CHLORIDE 108 mmol/L (98-107); CREATININE RESULT 1.25 mg/dL (0.52-1.25); GLUCOSE 238 mg/dL (75-110); POTASSIUM 4.1 mmol/L (3.6-5.0); SODIUM 144.7 mmol/L (137-145); TRIGLYCERIDES 56 mg/dL (<150)
[2016-03-27 08:58] LABS: BAND NEUTROPHILS % (MANUAL) 3 % (3-5); BASOPHILS % (MANUAL) 0 % (0-2); EOSINOPHILS % (MANUAL) 0 % (0-6); LYMPHOCYTES % (MANUAL) 2 % (13-45); TOTAL CELLS COUNTED 100
[2016-03-27 09:02] LABS: TOXIC GRANULATION 1+
[2016-03-27 09:03] LABS: ANISOCYTOSIS 1+; POLYCHROMASIA SLIGHT
[2016-03-27 09:04] VITALS: BP 141/81
[2016-03-27] MEDS: LEVOTHYROXINE SODIUM INJ/PF 0.1 MG SDV IV SCH (09:42)
[2016-03-27] MEDS ORDERED: METHYLPREDNISOLONE INJ 125 MG/2 ML SDV IV SCH (09:47)
[2016-03-27] MEDS ORDERED: IMIPENEM/CILASTATIN SODIUM 1,000 MG in NORMAL SALINE 250 ML IV SCH (10:00)
[2016-03-27] MEDS ORDERED: HALOPERIDOL LACTATE INJ 5 MG/1 ML VIAL IV PRN (10:18)
[2016-03-27] MEDS ORDERED: LORAZEPAM INJ 2 MG/1 ML VIAL IV PRN (10:32)
[2016-03-27] MEDS ORDERED: MORPHINE SULFATE 10 MG/ML INJ IV PRN (10:33)
--- NOTE | 2016-03-27 10:42 | PDOC PROGRESS REPORT ---
Subjective Progress Note for:: 03/27/16 Subjective:: Overnight, patient had a bout of confusion with complaints of abdominal pain. Patient currently moaning. Patient family at bedside. Unable to obtain review of systems secondary to encephalopathy. Physical Exam Vital Signs: Temp Pulse Resp BP Pulse Ox 97.4 F 90 13 153/70 H 97 03/27/16 03:56 03/27/16 03:56 03/27/16 04:45 03/27/16 03:56 03/27/16 03:56 Intake & Output 03/26/16 03/27/16 03/28/16 06:59 06:59 06:59 Intake Total 3345 2280 Output Total 2900 3200 Balance 445 -920 Weight 46 kg 46 kg Exam: General: Eyes open, localizes to pain, tachypnea, severe pain, thin, chronically ill-appearing HEENT: AT/NC,oropharynx is dry, shallow tongue ulcerations, pink, no scleral icterus, no conjunctival injection, temporal muscle wasting Neck: No JVD, trachea midline Chest: Clear to auscultation bilaterally, no wheezes rhonchi or rales CV: Tachycardic, Regular rate and rhythm, normal S1 and S2, no rub or gallop Abdomen: Soft, diffusely tender to palpation, nondistended, absent bowel sounds ; no rebound, rigidity; midline incision well healing, right lower quadrant NATHAN drain draining purulent fluid with surrounding erythema of the exit site Extremities: No cyanosis, clubbing or edema Neuro: Moves all extremities Results Laboratory Results: 03/26/16 03:00 03/26/16 03:00 03/26/16 03:00 Phosphorus 2.7 Magnesium 2.1 Impressions: Abdomen/Pelvis CT 03/19/16 08:12 IMPRESSION: Findings worrisome for early or partial small bowel obstruction Abdomen X-Ray 03/20/16 00:00 IMPRESSION: Nonspecific intestinal bowel gas pattern without evidence for obstruction. Left renal calculi. Other findings as noted above Head CT 03/24/16 00:00 IMPRESSION: CHRONIC CHANGES OF ATROPHY AND MICROVASCULAR ISCHEMIA. NO ACUTE PROCESS. Chest X-Ray 03/25/16 00:00 IMPRESSION: No focal infiltrates. Tubes and lines in good positioning KUB X-Ray 03/25/16 00:00 IMPRESSION: Nonobstructive bowel gas pattern. Assessment & Plan - Diagnosis (1) Sepsis Qualifiers: Sepsis type: sepsis due to unspecified organism Qualified Code(s): A41.9 - Sepsis, unspecified organism Is this a current diagnosis for this admission?: YesPlan: In light of patient's worsening pain, new sepsis with peritonitis as patient has gricel pus in her NATHAN drain and blood tinged NG aspirate as well as continued ileus and pain, family has elected to make patient comfort measures in accordance with what was felt to be patient wishes. Patient already a DNR/DNI. Pastoral care consulted. Morphine ACCOUNTING MANAGER with basal rate added and Fentanyl patch increased. Scopolamine for secretions. Ativan for anxiety. Patient normally takes ativan at home and will continue scheduled ativan here. Haldol for agitation. Discussed with Dr. Lindsay of surgery who feels this is an appropriate plan of care for this patient. (2) Peritonitis (acute) generalized Is this a current diagnosis for this admission?: Yes (3) Small bowel obstruction with strangulation or infarction Is this a current diagnosis for this admission?: Yes (4) Postoperative ileus Is this a current diagnosis for this admission?: Yes (5) Acute encephalopathy Is this a current diagnosis for this admission?: Yes (6) COPD (chronic obstructive pulmonary disease) Qualifiers: COPD type: unspecified COPD Qualified Code(s): J44.9 - Chronic obstructive pulmonary disease, unspecified Is this a current diagnosis for this admission?: Yes (7) Hypertension Qualifiers: Hypertension type: essential hypertension Qualified Code(s): I10 - Essential (primary) hypertension Is this a current diagnosis for this admission?: Yes (8) Hypothyroidism (acquired) Is this a current diagnosis for this admission?: Yes (9) Diastolic CHF Qualifiers: Congestive heart failure chronicity: chronic Qualified Code(s): I50.32 - Chronic diastolic (congestive) heart failure Is this a current diagnosis for this admission?: Yes (10) Rheumatoid arthritis Qualifiers: Rheumatoid arthritis location: unspecified site Rheumatoid factor presence: unspecified presence Qualified Code(s): M06.9 - Rheumatoid arthritis, unspecified Is this a current diagnosis for this admission?: Yes (11) Small bowel obstruction due to adhesions Is this a current diagnosis for this admission?: Yes (12) Malignant cachexia Is this a current diagnosis for this admission?: Yes (13) Upper GI hemorrhage Is this a current diagnosis for this admission?: Yes - Time Time Spent with patient: 35 or more minutes Medications reviewed and adjusted accordingly: Yes Anticipated discharge: Hospice Within: within 48 hours
[2016-03-27] MEDS ORDERED: HYDROMORPHONE HCL INJ/PF 2 MG/ML AMPULE ONE (10:46)
[2016-03-27] MEDS ORDERED: LORAZEPAM INJ 2 MG/1 ML VIAL ONE (10:47)
[2016-03-27] MEDS ORDERED: HYDROMORPHONE HCL INJ/PF 2 MG/ML AMPULE IV ONE (11:00)
[2016-03-27] MEDS ORDERED: FENTANYL 50 MCG/HR PATCH.TD72 TD ONE (11:00)
[2016-03-27] MEDS ORDERED: LORAZEPAM INJ 2 MG/1 ML VIAL IV ONE (11:00)
[2016-03-27] MEDS ORDERED: MORPHINE SULFATE 60 MG/60 ML RTUINJ IV PRN (11:11)
[2016-03-27] MEDS ORDERED: NORMAL SALINE 1000 ML 1,000 ML IV PRN (11:14)
[2016-03-27] MEDS ORDERED: SCOPOLAMINE HYDROBROMIDE 1.5 MG PATCH.TD72 TD ONE (11:30)
[2016-03-27] MEDS ORDERED: METHYLPREDNISOLONE INJ 40 MG/1 ML SDV IV SCH (14:00)
[2016-03-27] MEDS ORDERED: IMIPENEM/CILASTATIN SODIUM 500 MG in NORMAL SALINE 100 ML IV SCH (14:00)
--- NOTE | 2016-03-27 18:50 | Death Summary ---
Summary Date : 03/27/16 Time of :: 16:16 Autopsy: No Resuscitation Status: Comfort Measures Only - Final Diagnosis (1) Sepsis Is this a current diagnosis for this admission?: Yes (2) Peritonitis (acute) generalized Is this a current diagnosis for this admission?: Yes (3) Small bowel obstruction with strangulation or infarction Is this a current diagnosis for this admission?: Yes (4) Postoperative ileus Is this a current diagnosis for this admission?: Yes (5) Acute encephalopathy Is this a current diagnosis for this admission?: Yes (6) COPD (chronic obstructive pulmonary disease) Is this a current diagnosis for this admission?: Yes (7) Hypertension Is this a current diagnosis for this admission?: Yes (8) Hypothyroidism (acquired) Is this a current diagnosis for this admission?: Yes (9) Diastolic CHF Is this a current diagnosis for this admission?: Yes (10) Rheumatoid arthritis Is this a current diagnosis for this admission?: Yes (11) Small bowel obstruction due to adhesions Is this a current diagnosis for this admission?: Yes (12) Malignant cachexia Is this a current diagnosis for this admission?: Yes (13) Upper GI hemorrhage Is this a current diagnosis for this admission?: Yes Hospital Course:: Patient was a 80-year-old female with a past medical history significant for gastric bypass, 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 Patient was found to have an acute small bowel obstruction and was taken to the OR by surgery. Patient had removal of some 200 cm of small intestine revealing high-grade stenosis and ischemia secondary to adhesions. Patient was initiated on TPN for nutrition. After extubation, patient was mildly confused and relatively nonverbal. A CT of the head was performed which revealed chronic small vessel ischemic changes. Patient was also felt to have a COPD exacerbation initiated on steroids and BiPAP. Patient was weaned off of steroids and BiPAP. Patient's mentation improved slightly with reinitiating scheduled Ativan. Patient however continued to dwindle and despite being on ertapenem developed purulent NATHAN drainage. At this time, due to patient's pain and condition, patient's family has elected to make her comfort measures. Patient was initiated on a morphine drip and she in the company of her family and [id number]. No autopsy was requested. Patient was pronounced by 2 RNs.
[2016-03-30] MEDS ORDERED: SCOPOLAMINE HYDROBROMIDE 1.5 MG PATCH.TD72 TD SCH (10:00)
[2016-03-30] MEDS ORDERED: FENTANYL 50 MCG/HR PATCH.TD72 TD SCH (10:00)
== END 2016-03-27 16:16 | DRG 329 ==
LOC: ER 06:44 → EH 10:10 → 5 13:31 → ICU 03-20 18:22 → 3S 03-24 22:33
PROC: 0D9670Z Drainage of Stomach with Drainage Device, Via Natural or Artificial Opening (ICD-10-PCS; 2016-03-20)
PROC: 3E0F73Z Introduction of Anti-inflammatory into Respiratory Tract, Via Natural or Artificial Opening (ICD-10-PCS; 2016-03-20)
PROC: 5A1945Z Respiratory Ventilation, 24-96 Consecutive Hours (ICD-10-PCS; 2016-03-20)
PROC: 0BH17EZ Insertion of Endotracheal Airway into Trachea, Via Natural or Artificial Opening (ICD-10-PCS; 2016-03-20)
PROC: 02HV33Z Insertion of Infusion Device into Superior Vena Cava, Percutaneous Approach (ICD-10-PCS; 2016-03-20)
PROC: 0DT80ZZ Resection of Small Intestine, Open Approach (ICD-10-PCS; principal; 2016-03-20 15:00)
PROC: 3E0G76Z Introduction of Nutritional Substance into Upper GI, Via Natural or Artificial Opening (ICD-10-PCS; 2016-03-21)
PROC: 5A09357 Assistance with Respiratory Ventilation, Less than 24 Consecutive Hours, Continuous Positive Airway Pressure (ICD-10-PCS; 2016-03-22)
PROC: 30233N1 Transfusion of Nonautologous Red Blood Cells into Peripheral Vein, Percutaneous Approach (ICD-10-PCS; 2016-03-23)
DX: K56.5 Intestinal adhesions [bands] with obstruction (postinfection) (principal); K65.0 Generalized (acute) peritonitis; E43 Unspecified severe protein-calorie malnutrition; A41.9 Sepsis, unspecified organism; R65.20 Severe sepsis without septic shock; I13.0 Hypertensive heart and chronic kidney disease with heart failure and stage 1 through stage 4 chronic kidney disease, or unspecified chronic kidney disease; I50.32 Chronic diastolic (congestive) heart failure; R64 Cachexia; J44.1 Chronic obstructive pulmonary disease with (acute) exacerbation; K57.92 Diverticulitis of intestine, part unspecified, without perforation or abscess without bleeding; K92.2 Gastrointestinal hemorrhage, unspecified; E46 Unspecified protein-calorie malnutrition; K52.0 Gastroenteritis and colitis due to radiation; Z68.1 Body mass index [BMI] 19.9 or less, adult; E03.9 Hypothyroidism, unspecified; M06.9 Rheumatoid arthritis, unspecified; C80.1 Malignant (primary) neoplasm, unspecified; K21.9 Gastro-esophageal reflux disease without esophagitis; M19.90 Unspecified osteoarthritis, unspecified site; F32.9 Major depressive disorder, single episode, unspecified; N20.0 Calculus of kidney; D63.1 Anemia in chronic kidney disease; N18.3 Chronic kidney disease, stage 3 (moderate); Z66 Do not resuscitate; Z98.84 Bariatric surgery status; Z90.49 Acquired absence of other specified parts of digestive tract; Z85.41 Personal history of malignant neoplasm of cervix uteri; Z90.710 Acquired absence of both cervix and uterus; Z93.3 Colostomy status; Z79.899 Other long term (current) drug therapy; Z88.1 Allergy status to other antibiotic agents; Z88.3 Allergy status to other anti-infective agents; Z88.7 Allergy status to serum and vaccine; Z91.018 Allergy to other foods; Z78.1 Physical restraint status; Z41.9 Encounter for procedure for purposes other than remedying health state, unspecified
CPT/HCPCS: 36415; 36430; 70450; 71010; 74000; 74020; 74177; 790; 80048; 80053; 81001; 82040; 82330; 82803; 82962; 83605; 83690; 83735; 84100; 84134; 84478; 85025; 85027; 85610; 86850; 86900; 86901; 86920; 88307; 93005; 93010; 94002; 94003; 94640; 94660; 96374; 96375; 99285; C1751; J0330; J0360; J0610; J1170; J1335; J1630; J1650; J1815; J1940; J2060; J2250; J2270; J2405; J2704; J2930; J3010; J3475; J3480; J3490; J7030; J7050; P9016; S0164